=== PATIENT | female | born 1945 | race Caucasian/White ===

== ENCOUNTER → 2018-06-04 09:16 | Outpatient (CLI) | payer MEDICARE, OTHER, SELFPAY ==
--- NOTE | 2018-06-04 09:21 | DI.RAD.S_ITS ---
PROCEDURE: XR SHOULDER RT MIN 2V INDICATIONS: R SHOULDER PAIN TECHNIQUE: 3 views of the shoulder were acquired. COMPARISON: None. FINDINGS: Bones: No fractures or dislocations. No suspicious bony lesions. Visualized ribs appear intact. Moderate right MALENA glenohumeral joint degeneration. Presumed chronic degenerative cystic change projecting at the greater tuberosity Soft tissues: No suspicious soft tissue calcifications. IMPRESSION: Moderate right shoulder joint degeneration. Dictated by: James Silverman M.D. on 06/04/2018 at 10:55 Approved by: James Silverman M.D. on 06/04/2018 at 10:57
[2018-06-04 10:12] LABS: BUN Creatinine Ratio 21.1 (6-22); Blood Urea Nitrogen 19 mg/dL (7-17); Calcium 9.5 mg/dL (8.4-10.2); Carbon Dioxide 31 mmol/L (22-32); Chloride 98 mmol/L (98-107); Cholesterol 227 mg/dL (140-199); Estimated Glomerular Filt Rate > 60.0 mL/min (>60); Glucose 100 mg/dL (80-110); HDL Cholesterol 76 mg/dL (40-60); HEMOLYSIS < 15 (0-50); Potassium 4.5 mmol/L (3.4-5.1); Sodium 141 mmol/L (137-145)
[2018-06-04 10:31] LABS: LDL Cholesterol Calculated 129 mg/dL (<100); Triglycerides 112 mg/dL (35-150)
[2018-06-04 10:36] LABS: Thyroid Stimulating Hormone 3.08 uIU/mL (0.47-4.68)
== END ==
PROVIDERS: PCP Internal Medicine; Visit Provider Internal Medicine
DX: Z00.00 Encounter for general adult medical examination without abnormal findings (principal); E78.5 Hyperlipidemia, unspecified; M19.011 Primary osteoarthritis, right shoulder; M25.511 Pain in right shoulder; R68.89 Other general symptoms and signs
CPT/HCPCS: 36415; 73030; 80048; 80061; 84443

== ENCOUNTER → 2018-07-31 09:37 | Outpatient (CLI) | payer MEDICARE, OTHER, SELFPAY ==
--- NOTE | 2018-07-31 | DI.RAD.S_ITS ---
PROCEDURE: XR CHEST 2V INDICATIONS: COUGH TECHNIQUE: 2 views of the chest were acquired. COMPARISON: None. FINDINGS: Surgical changes and devices: None. Lungs and pleura: Lungs are clear. No pleural effusions or pneumothorax. Mediastinum: Mediastinal contours are normal. Heart size is normal. Bones and chest wall: No suspicious bony abnormalities. Soft tissues appear unremarkable. IMPRESSION: No acute disease Dictated by: James Silverman M.D. on 07/31/2018 at 10:21 Approved by: James Silverman M.D. on 07/31/2018 at 10:22
== END ==
PROVIDERS: PCP Internal Medicine; Visit Provider Internal Medicine
DX: R05 Cough (principal)
CPT/HCPCS: 71046

== ENCOUNTER 2018-09-28 20:23 | Emergency (ER) | payer MEDICARE, OTHER, SELFPAY ==
[2018-09-28 20:34] VITALS: BP 167/82; PULSE 81; RESP 15; TEMP 36.4; O2SAT 100; BMI 23.0
--- NOTE | 2018-09-28 20:36 | ED_ITS ---
HPI - Seizure General Chief Complaint: Seizure Stated Complaint: Tingling hands and flushed Time Seen by Provider: 09/28/18 20:26 Source: patient and family Mode of arrival: ambulatory Limitations: no limitations History of Present Illness HPI Narrative: Patient is 73-year-old female who presents with episodes of st aring off into space. She says she gets really flushed she feels her heart pounding on she stares off for a few seconds. Her is at 2 episodes this evening they have been happening throughout the week. She never passes out. She is not there during the episode as she just stares off. She does not fall down there is no shaking. His but she can tell that they are coming with feeling flushed she gets tingling in her hands. She says that she has been having some chest discomfort for about a month. She has no numbness tingling or weakness no difficulty speaking. Her states that she is quite forgetful at times which is not abnormal for her. He is followed by primary care ph ysician here in [facility]. complaint: possible seizure Related Data Allergies Allergy/AdvReac Type Severity Reaction Status Date / Time Sulfa (Sulfonamide Allergy Severe NAUSEA/ACHE Verified 09/28/18 20:34 Antibiotics) S [SULFA (SULFONAMIDE ANTIBIOTICS)] Review of Systems Review of Systems ROS Unobtainable: All systems reviewed & are unremarkable except as noted in HPI and below Constitutional Denies chills, Denies fever(s), Denies lethargy and Denies weakness Cardiovascular Reports chest pain, Denies syncope, Reports rapid heart rate, Denies irregular heart rhythm, Denies lightheadedness, Denies palpitations, Denies dyspnea, Denies dyspnea on exertion and Denies orthopnea Respiratory Denies cough, Denies dyspnea, Denies dyspnea on exertion and Denies wheezing Gastrointestinal Gastrointestinal: Denies abdominal pain, Denies change in bowel habits, Denies diarrhea, Denies nausea and Denies vomiting Genitourinary Denies hematuria, Denies flank pain, Denies urinary incontinence and Denies urinary urgency Musculoskeletal Denies back pain, Denies muscle weakness, Denies numbness and Denies tingling Integumentary/Breasts Denies pruritus, Denies erythema, Denies rash and Denies wounds Neurologic Reports as per HPI, Reports confusion, Denies syncope, Denies lack of c oordination, Denies numbness, Denies convulsions, Denies tingling and Denies weakness Psychiatric Reports confusion Endocrine Denies palpitations Allergic/Immunologic Denies wheezing COUNTS INCLUDE 234 BEDS AT THE [facility] Medical History Memory change (Acute) Patient denies significant medical history (Acute) Social History Smoking Status: Unknown if ever smoked Social History Smoking Status: Unknown if ever smoked Exam Initial Vital Signs Initial Vital Signs: Vital Signs Temperature 97.6 F 09/28/18 20:34 Pulse Rate 81 09/28/18 20:34 Respiratory Rate 15 09/28/18 20:34 Blood Pressure 167/82 H 09/28/18 20:34 Pulse Oximetry 100 09/28/18 20:34 GENERAL: Well-appearing, well-nourished and in no acute distress. HEENT: Head atraumatic,EOMI, pupils reactive, face symmetric, moist mucous membranes CARDIOVASCULAR: Regular rate and rhythm without murmurs, rubs or gallops. RESPIRATORY: Breath sounds equal bilaterally, no wheezes rales or rhonchi. ABDOMEN: Soft, nontender. Normoactive bowel sounds all 4 quadrants. No guarding or rebound. EXTREMITIES: Normal range of motion, no clubbing or edema. Neurovascularly intact NEUROLOGICAL: Alert and oriented x4.Normal gait and speech. Cranial nerves II through XII grossly intact. Good otywxa-ts-wbpb, good xkbs-vb-smof, strength equal bilaterally, no dysarthria or aphasia, sensation in tact to soft touch bilaterally, no visual changes, no facial droop SKIN: Warm, dry, no laceration, no petechiae, no rashes or lesions. Scores NIH Stroke Scale Level of Conciousness: Alert, keenly responsive Ask month/age: Answers both questions correctly. Open/close eyes, close hand: Performs both tasks correctly Best gaze horizontal: Normal Visual andujar: No visual loss Facial palsy: Normal symetrical movement Left arm drift: No drift for full 10 sec Right arm drift: No drift for full 10 sec Left leg drift: No drift for full 10 sec Right leg drift: No drift for full 10 sec Limb ataxia: Absent Sensory on face/arms/legs: Normal, no sensory loss Best language: No aphasia, normal Dysarthria: Normal Extinction or inattention: No abnormality Total NIH Stroke scale score: 0 Course Orders Ordered: ED Orders 09/28/18 20:42 Complete Blood Count AUTO DIFF Stat Comprehensive Metabolic Panel Stat Magnesium Stat Prolactin Stat Troponin & CK Cardiac Panel Stat 09/28/18 20:43 CT head/brain wo con Stat EKG-12 Lead Stat 09/28/18 20:44 XR chest 1V Stat Discontinued Medications Sodium Chloride (Normal Saline 0.9%) 1,000 mls @ 1,000 mls/hr IV BOLUS ONE Stop: 09/28/18 21:42 Last Infusion: 09/28/18 22:37 Dose: 0 mls/hr Admin: 09/28/18 21:03 Dose: 1,000 mls/hr Vital Signs - 8 hr 09/28/18 20:34 09/28/18 21:31 09/28/18 22:00 Temperature 97.6 F Pulse Rate 81 81 78 Respiratory Rate 15 12 19 Blood Pressure 167/82 H Blood Pressure [Left Arm] 126/104 H 112/67 Pulse Oximetry 100 98 98 MDM - Seizure Lab Data Attestation: I reviewed the patient's lab results. Result diagrams: 09/28/18 20:42 09/28/18 20:42 Lab Results 09/28/18 09/28/18 Range/Units 20:42 20:42 WBC 7.2 (4.5-11.0) X10^3/uL RBC 4.22 (4.0-5.2) X10^6/uL Hgb 13.8 (12.0-16.0) g/dL Hct 39.9 (36-46) % MCV 94.5 (80-100) fL MCH 32.7 (26-34) PG MCHC 34.6 (30-36) % RDW 12.4 (11.6-14.8) % Plt Count 293 (150-400) X10^3/uL Neut % (Auto) 62.1 (50-75) % Lymph % (Auto) 26.5 (25-40) % Andrew % (Auto) 8.9 (3-14) % Eos % (Auto) 1.6 L (2-4) % Baso % (Auto) 0.9 (0-2) % Neut # (Auto) 4500 (1825-9826) /uL Lymph # (Auto) 1900 (6392-2314) /uL Andrew # (Auto) 600 (0-900) /uL Eos # (Auto) 100 (0-450) /uL Baso # (Auto) 100 (0-100) /uL Sodium 134 L (137-145) mmol/L Potassium 4.1 (3.4-5.1) mmol/L Chloride 99 (98-107) mmol/L Carbon Dioxide 24 (22-32) mmol/L BUN 24 H (7-17) mg/dL Creatinine 0.80 (0.52-1.04) mg/dL Estimated GFR > 60.0 (>60) mL/min BUN/Creatinine Ratio 30.0 H (6-22) Glucose 126 H (80-110) mg/dL Calcium 9.0 (8.4-10.2) mg/dL Magnesium 2.0 (1.6-2.3) mg/dL Total Bilirubin 0.3 (0.2-1.3) mg/dL AST 33 (14-36) IU/L ALT 31 (9-52) IU/L Alkaline Phosphatase 84 (38-126) U/L Total Creatine Kinase 132 (30-135) U/L CK-MB (CK-2) 0.92 (<2.37) ng/mL CK-MB (CK-2) Rel Index 0.7 L (1.5-5.0) % Troponin I < 0.012 (0.01-0.034) ng/mL Total Protein 6.7 (6.3-8.2) g/dL Albumin 4.4 (3.5-5.0) g/dL Globulin 2.3 (1.7-4.1) g/dL Albumin/Globulin Ratio 1.9 (1.0-2.8) Prolactin 32.3 H (3.0-18.6) ng/mL Urine Dip Bedside Urine Glucose Negative Bedside Urine Bilirubin - Negative Bedside Urine Ketone - Negative Urine Specific [place] 1.015 Bedside Urine Occult Blood + Bedside Urine pH 6.0 Bedside Urine Protein - Negative Bedside Urine Urobilinogen - Negative Bedside Urine Nitrite - Negative Bedside Urine Leukocytes - Negative Esterase Imaging Data CT scan - head: Radiologist's impression: PROCEDURE: CT HEAD/BRAIN WO CON INDICATIONS: possible seizures TECHNIQUE: Noncontrast 4.5 mm thick angled axial sections acquired from the foramen magnum to the vertex, with coronal and sagittal reformats. For radiation dose reduction, the following was used: automated exposure control, adjustment of mA and/or kV according to patient size. COMPARISON: None. FINDINGS: Image quality: Excellent. CSF spaces: Basal cisterns are patent. No extra-axial fluid collections. Ventricles are normal in size and shape. Brain: No midline shift. Subcentimeter hypoattenuating foci identified within the left basal ganglia. There are punctate calcifications in the right frontal lobe. Stanton-white matter interface is normal. Skull and face: Calvarium and visualized facial bones are intact, without suspicious lesions. Sinuses: Visualized sinuses and mastoids are clear. IMPRESSION: 1. Subcentimeter hypoattenuating foci within the left basal ganglia may represent age-indeterminate lacunar infarcts versus benign dilated perivascular spaces. Clinical correlation recommended. Consider brain MRI if there is continued clinical concern. 2. Punctate hyperattenuating foci in the right frontal lobe are favored to represent calcifications, with hemorrhage thought less likely. This can be the sequela of prior infection (such as seen with neurocysticercosis) or trauma, with hemorrhage thought less likely. Consider brain MRI if there is continued clinical concern. Findings discussed with the referring provider Dr. Loyda Kilgore at 9:40 PM on 09/28/[address] Patino. Dictated by: Sherman Patino M.D. on 09/28/2018 at 21:32 Approved by: Sherman Patino M.D. on 09/28/2018 at 21:4 Chest x-ray: Radiologist's impression: PROCEDURE: XR CHEST 1V INDICATIONS: chest pain TECHNIQUE: One view of the chest was acquired. COMPARISON: [facility], , XR CHEST 2V, 07/31/2018, 9:47. FINDINGS: Surgical changes and devices: None. Lungs and pleura: Lungs are clear. No pleural effusions or pneumothorax. Mediastinum: Mediastinal contours appear normal. Heart size is normal. There is mild prominence of the pulmonary vasculature. Bones and chest wall: No suspicious bony lesions. Overlying soft tissues appear unremarkable. IMPRESSION: No acute cardiopulmonary disease. Dictated by: Sherman Patino M.D. on 09/28/2018 at 23:11 ECG Data Attestation: I personally reviewed and interpreted this ECG as follows: Prior ECG tracings: available for review Interpretation: Normal sinus rhythm rate [address] changes no priors to compare MDM Narrative Medical decision making narrative: It sounds like patient is having almost like absence seizures. Head CT did show some questionable areas no acute hemorrhage or masses. she may also be having cardiac arrhythmia she does not pass out there is no syncopal episode. I discussed with both she and her that she probably needs neurology consultation along with MRI. At this point I do not think admission is needed but further workup for sure. She has no focal deficits she has not had any episodes in the ED. At this time I recommend the patient not drive until further evaluation. She and her both understand and agree She may also need Holter monitor for cardiac arrhythmia. I discussed all findings with the patient and spouse, Education has been performed regarding treatment plan, diagnosis, warning signs and symptoms and all concerns have been addressed. Verbally agree with and understood all of the above. Discharge Plan Departure Patient Disposition: Home Clinical Impression: Absence attack Discharge Date/Time: 09/28/18 22:46 Interventions: ED Discharge Assessment Last Done: 09/28/18 22:46 Instructions: DI for Seizure Disorder -- Adult Activity Restrictions/Additional Instructions: DO NOT DRIVE FOR 6 MONTHS UNTIL EVALUATION BY NEUROLOGY *You have been diagnosed with possible abscess on seizure *What to do: You need further evaluation such as MRI of the brain and Neurology evaluation. *Continue to take medications as directed *Follow up with your primary care provider in 2-3 days, *Return to ER if you should have or any new, worsening or concerning symptoms Referrals: Jonathan Tran MD [Non-Staff] - Darshana Alexander MD [Primary Care Provider] -
--- NOTE | 2018-09-28 20:43 | DI.CT.S_ITS ---
PROCEDURE: CT HEAD/BRAIN WO CON INDICATIONS: possible seizures TECHNIQUE: Noncontrast 4.5 mm thick angled axial sections acquired from the foramen magnum to the vertex, with coronal and sagittal reformats. For radiation dose reduction, the following was used: automated exposure control, adjustment of mA and/or kV according to patient size. COMPARISON: None. FINDINGS: Image quality: Excellent. CSF spaces: Basal cisterns are patent. No extra-axial fluid collections. Ventricles are normal in size and shape. Brain: No midline shift. Subcentimeter hypoattenuating foci identified within the left basal ganglia. There are punctate calcifications in the right frontal lobe. Stanton-white matter interface is normal. Skull and face: Calvarium and visualized facial bones are intact, without suspicious lesions. Sinuses: Visualized sinuses and mastoids are clear. IMPRESSION: 1. Subcentimeter hypoattenuating foci within the left basal ganglia may represent age-indeterminate lacunar infarcts versus benign dilated perivascular spaces. Clinical correlation recommended. Consider brain MRI if there is continued clinical concern. 2. Punctate hyperattenuating foci in the right frontal lobe are favored to represent calcifications, with hemorrhage thought less likely. This can be the sequela of prior infection (such as seen with neurocysticercosis) or trauma, with hemorrhage thought less likely. Consider brain MRI if there is continued clinical concern. Findings discussed with the referring provider Dr. Loyda Kilgore at 9:40 PM on 09/28/[address] Patino. Dictated by: Sherman Patino M.D. on 09/28/2018 at 21:32 Approved by: Sherman Patino M.D. on 09/28/2018 at 21:41
--- NOTE | 2018-09-28 20:44 | DI.RAD.S_ITS ---
PROCEDURE: XR CHEST 1V INDICATIONS: chest pain TECHNIQUE: One view of the chest was acquired. COMPARISON: [facility], CR, XR CHEST 2V, 07/31/2018, 9:47. FINDINGS: Surgical changes and devices: None. Lungs and pleura: Lungs are clear. No pleural effusions or pneumothorax. Mediastinum: Mediastinal contours appear normal. Heart size is normal. There is mild prominence of the pulmonary vasculature. Bones and chest wall: No suspicious bony lesions. Overlying soft tissues appear unremarkable. IMPRESSION: No acute cardiopulmonary disease. Dictated by: Sherman Patino M.D. on 09/28/2018 at 23:11 Approved by: Sherman Patino M.D. on 09/28/2018 at 23:13
[2018-09-28 20:52] LABS: Add Manual Diff / Slide Review NO; Basophils Absolute Auto 100 /uL (0-100); Basophils Percent Auto 0.9 % (0-2); Eosinophils Absolute Auto 100 /uL (0-450); Eosinophils Percent Auto 1.6 % (2-4); Hematocrit 39.9 % (36-46); Hemoglobin 13.8 g/dL (12.0-16.0); Lymphocytes Absolute Auto 1900 /uL (1100-4500); Lymphocytes Percent Auto 26.5 % (25-40); Mean Corpuscular HGB Conc 34.6 % (30-36); Mean Corpuscular Hemoglobin 32.7 PG (26-34); Mean Corpuscular Volume 94.5 fL (80-100); Monocytes Absolute Auto 600 /uL (0-900); Monocytes Percent Auto 8.9 % (3-14); Neutrophils Absolute Auto 4500 /uL (1500-7000); Neutrophils Percent Auto 62.1 % (50-75); Platelet Count 293 X10^3/uL (150-400); Red Blood Cell Count 4.22 X10^6/uL (4.0-5.2); Red Cell Distribution Width 12.4 % (11.6-14.8); White Blood Cell Count 7.2 X10^3/uL (4.5-11.0)
[2018-09-28] MEDS: SODIUM CHLORIDE 0.9% 1,000 ML 1000 ML IV (21:03)
[2018-09-28 21:13] LABS: Alanine Aminotransferase 31 IU/L (9-52); Albumin 4.4 g/dL (3.5-5.0); Albumin Globulin Ratio 1.9 (1.0-2.8); Alkaline Phosphatase 84 U/L (38-126); Aspartate Aminotransferase 33 IU/L (14-36); Bilirubin Total 0.3 mg/dL (0.2-1.3); Blood Urea Nitrogen 24 mg/dL (7-17); Carbon Dioxide 24 mmol/L (22-32); Chloride 99 mmol/L (98-107); Creatine Kinase 132 U/L (30-135); Estimated Glomerular Filt Rate > 60.0 mL/min (>60); Globulin 2.3 g/dL (1.7-4.1); Glucose 126 mg/dL (80-110); HEMOLYSIS 32 (0-50); Potassium 4.1 mmol/L (3.4-5.1); Sodium 134 mmol/L (137-145); Total Protein 6.7 g/dL (6.3-8.2)
[2018-09-28 21:14] LABS: Troponin I < 0.012 ng/mL (0.01-0.034)
[2018-09-28 21:18] LABS: CKMB % Relative Index 0.7 % (1.5-5.0); Creatine Kinase MB 0.92 ng/mL (<2.37)
[2018-09-28 21:19] LABS: Prolactin 32.3 ng/mL (3.0-18.6)
[2018-09-28 21:31] VITALS: BP 126/104; PULSE 81; RESP 12; O2SAT 98
[2018-09-28 22:00] VITALS: BP 112/67; PULSE 78; RESP 19; O2SAT 98
== END 2018-09-28 22:46 | disposition home or self-care (01) ==
PROVIDERS: Emergency Provider Emergency Medicine; PCP Internal Medicine
DX: G40.A09 Absence epileptic syndrome, not intractable, without status epilepticus (principal); R07.9 Chest pain, unspecified
CPT/HCPCS: 36591; 70450; 71045; 80053; 81003; 82550; 82553; 83735; 84146; 84484; 85025; 93005; 96360; 96361; 99283; 99285

== ENCOUNTER → 2018-10-08 06:27 | Outpatient (CLI) | payer MEDICARE, OTHER, SELFPAY ==
--- NOTE | 2018-10-08 | DI.MRI.S_ITS ---
PROCEDURE: MR STROKE Pre- and post-contrast brain MRI, non-contrast brain MR angiogram, pre- and postcontrast neck MR angiogram INDICATIONS: cerebral infarction due to occlusion or stenosis TECHNIQUE: Brain: Noncontrast axial T1 spin echo, axial T2 fast spin echo, sagittal and axial FLAIR, coronal T2 fast spin echo, axial gradient echo, axial diffusion and ADC through the brain. After the administration of contrast, axial 3D VIBE of the cranial vasculature and brain. Brain MRA: Non-contrast 3-D time of flight MR angiogram, with multiple vlaoika-nncbfsxqf-ldibfvzskp (MIP) reformats performed. Neck MRA: Axial and sagittal TruFISP through the neck. Coronal dynamic MR angiogram during administration of contrast in the arterial and venous phases, with 3-dimenstional qlgcbmc-mhwkbmfaf-ropjykjobn (MIP) reformats constructed from subtraction images. COMPARISON: [facility], CT, CT HEAD/BRAIN WO CON, 09/28/2018, 20:48. FINDINGS: Image quality: Excellent. BRAIN: CSF spaces: Ventricles are normal in size and shape. Basal cisterns are patent. No extra-axial fluid collections. Brain: No intracranial bleeds or mass effects. Stanton-white matter interface is normal. Diffusion weighted images show no acute ischemic insults. Small lacunar infarctions are seen involving the basal ganglia, left more prominent than right. Brainstem appears normal. Normal intravascular flow voids are present. No abnormal intracranial enhancement. Skull and face: Calvarial marrow signal is normal. Orbits appear normal. Sinuses: Sinuses and mastoids are clear. There is mild leftward nasal septal deviation. BRAIN MR ANGIOGRAM: Anterior circulation: Intracranial internal carotid arteries are normal in size and enhancement. The flow within the paired anterior cerebral arteries is normal and symmetric. The flow within the middle cerebral arteries is normal and symmetric. The anterior communicating artery is seen. No stenoses, occlusions, or aneurysms. Posterior circulation: The visualized portions of the vertebral arteries demonstrate normal caliber, and join to form a normal appearing basilar artery. The flow within the posterior cerebral arteries is normal and symmetric. No stenoses, occlusions, or aneurysms. NECK MR ANGIOGRAM: Carotids: Incidental note is made of a common origin of the right brachiocephalic artery and the left common carotid artery (bovine type arch). This is considered to be a developmental variant of no clinical consequence. The origins of the common carotid arteries appear patent. The calibers and courses of both common carotid arteries are normal. The bifurcation regions appear normal bilaterally. The internal carotid arteries demonstrate normal course and caliber. Posterior circulation: The origins of the vertebral arteries appear patent. More superior portions of both vertebral arteries demonstrate normal course and caliber, and join to form a normal appearing basilar artery. Miscellaneous: Subclavian arteries appear patent. Pre-contrast images through the neck show no soft tissue abnormalities. IMPRESSION: BRAIN MRI: No findings of acute or subacute infarction can be seen. 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 BRAIN MR ANGIOGRAM: No significant intracranial arterial abnormality in the seen. NECK MR ANGIOGRAM: Within the arteries of the neck, no hemodynamically significant stenosis can be seen. Dictated by: Antonio Redd M.D. on 10/08/2018 at 9:04 Approved by: Antonio Redd M.D. on 10/08/2018 at 9:08
== END ==
PROVIDERS: PCP Internal Medicine; Visit Provider Internal Medicine
DX: I63.81 Other cerebral infarction due to occlusion or stenosis of small artery (principal)
CPT/HCPCS: 70548; 70553

== ENCOUNTER → 2019-01-02 07:37 | Outpatient (CLI) | payer MEDICARE, OTHER, SELFPAY ==
[2019-01-02 09:42] LABS: Alanine Aminotransferase 23 IU/L (9-52); Aspartate Aminotransferase 35 IU/L (14-36); Cholesterol 144 mg/dL (140-199); HDL Cholesterol 63 mg/dL (40-60); LDL Cholesterol Calculated 71 mg/dL (<100); Triglycerides 50 mg/dL (35-150)
== END ==
PROVIDERS: PCP Internal Medicine; Visit Provider Internal Medicine
DX: E78.5 Hyperlipidemia, unspecified (principal)
CPT/HCPCS: 36415; 80061; 84450; 84460

== ENCOUNTER → 2019-01-07 10:43 | Outpatient (CLI) | payer MEDICARE, OTHER, SELFPAY ==
--- NOTE | 2019-01-07 | DI.RAD.S_ITS ---
PROCEDURE: FL BARIUM SWALLOW W SPEECH INDICATIONS: DYSPHAGIA/COUGH TECHNIQUE: Examination was conducted in conjunction with speech pathology per standard protocol. In the lateral projection, filming was performed of the patient swallowing. AP projection filming may also be performed with patient swallowing. COMPARISON: None. FINDINGS: Function: The oral preparatory phase appears normal, with proper containment. The subsequent oral propulsive phase, pharyngeal phase, and esophageal phase of swallowing also appear normal with all proffered substances. No laryngotracheal penetration or aspiration. No pathologic vallecular pooling. Mild residue present in the left pyriform sinus Morphology: No cricopharyngeal bar is identified. No cervical esophageal webs. No Zenker's diverticulum. No strictures. IMPRESSION: No aspiration Dictated by: James Silverman M.D. on 01/07/2019 at 12:14 Approved by: James Silverman M.D. on 01/07/2019 at 12:14
--- NOTE | 2019-01-07 14:25 | ST.SWALLOW ---
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 Pt reported that she has been coughing and choking when she has been eating. She noted that this has not happened for a couple of months. She continues to have post nasal drip and sinus problems that contribute to he cough, she reported. In reviewing the pts records noted that she was admitted to the ED department of [facility] on 09/28/18 with a possible CVA or seizure activity. An MRI at the time indicated Brain: No intracranial bleeds or mass effects. Stanton-white matter interface is normal. Diffusion weighted images show no acute ischemic insults. Small lacunar infarctions are seen involving the basal ganglia, left more prominent than right. Brainstem appears normal. Normal intravascular flow voids are present. No abnormal intracranial enhancement.: ( see ED note 11/11) Subjective Observations Pt was seated in the flouroscopy chair. Procedure instructions were provided . Oral mechanism examination wasn unremarkable Patient Positioning Position View Lat-A/P Imaging Lateral View Textures Administered Trials Presented Thin Liquid via Spoon Thin Liquid via Cup Thin Liquid via Straw [place] Liquid via Cup Pudding Thick Liquid via Spoon Regular Textures Oral Phase Source: MBSIMP (TM) (C) Bolus Specific Scoring Grid Lip Closure WFL Tongue Control During Bolus Hold WFL Bolus Prep/Mastication WFL Bolus Transport/Lingual Motion WFL A/P Lingual Propulsion Delay No Oral Residue No Impairment (WNL) Nasal Regurgitation No Additional Oral Phase Observations Oral phase of Pt's swallowing appeared to be WNL/WFL Pharyngeal Phase Source: MBSIMP (TM) (C) Bolus Specific Scoring Grid Delayed Initiation of Pharyngeal Swallow No Soft Palate Elevation WFL Tongue Base Strength/Range of Motion WFL Residue Along the Tongue Base No: Minimal Clearance of Residue Along Tongue Base WFL Laryngeal Elevation WFL Anterior Hyoid Movement WFL Epiglottic Range of Motion WFL Clearance of Vallecular Residue WFL Laryngeal Vestibular Closure WFL Pharyngeal Stripping Wave WFL Pharyngeal Contraction WFL Posterior Pharyngeal Wall Residue Yes: Minimal to mild - cleared with subsequent swallow Clearance of Posterior Pharyngeal Wall WFL Residue Upper Esophageal Sphincter Opening WFL Residue in the Pyriform Sinuses Yes: left side not clearing with subsequent swallows Clearance of Residue in the Pyriform Mild Impairment Sinuses Esophageal Clearance Upright Position WFL Pharyngoesophageal Backflow Observed No Additional Pharyngeal Phase Observations Pharyngeal phase of the swallow appeared to be WFL for the Pt. There were, however, several cervical osteophytes that intruded in the pharyngeal and upper esophageal spaces that could be impacting bolus flow This could then give the patient a sense of swallowing difficulty . The osteophytes were located from C3-4 to C6-7. A/P View Textures Administered Trials Presented [place] Liquid via Cup A/P View Observations Pharyngeal Contraction WFL Vocal Fold Function Good Residue Observed Pyriform Sinus Left Esophageal Function WFL Esophageal Clearance Upright Position WFL Clinical Impressions Dysphagia Type No oropharyngeal dysphagia observed Patient Appropriate for Therapy No Recommendations Diet Liquids Order Thin Diet Order Regular Medication Recommendation As Tolerated Aspiration Precautions Recommended Precautions Upright at 90 Degrees Treatment Plan Recommended Referrals Primary Care Physician ENT Consult
== END ==
PROVIDERS: PCP Internal Medicine; Visit Provider Otolaryngology
DX: R13.19 Other dysphagia (principal); R05 Cough
CPT/HCPCS: 74230; 92611

== ENCOUNTER → 2019-01-22 08:18 | Outpatient (CLI) | payer MEDICARE, OTHER, SELFPAY ==
[2019-01-22 09:25] LABS: Add Manual Diff / Slide Review NO; Basophils Absolute Auto 0 /uL (0-100); Basophils Percent Auto 0.7 % (0-2); Eosinophils Absolute Auto 100 /uL (0-450); Eosinophils Percent Auto 2.3 % (2-4); Hematocrit 41.4 % (36-46); Hemoglobin 14.5 g/dL (12.0-16.0); Lymphocytes Absolute Auto 1800 /uL (1100-4500); Lymphocytes Percent Auto 27.9 % (25-40); Mean Corpuscular Hemoglobin 33.1 PG (26-34); Mean Corpuscular Volume 94.6 fL (80-100); Monocytes Absolute Auto 500 /uL (0-900); Monocytes Percent Auto 8.4 % (3-14); Neutrophils Absolute Auto 3800 /uL (1500-7000); Neutrophils Percent Auto 60.7 % (50-75); Platelet Count 297 X10^3/uL (150-400); Red Blood Cell Count 4.38 X10^6/uL (4.0-5.2); Red Cell Distribution Width 12.1 % (11.6-14.8); White Blood Cell Count 6.3 X10^3/uL (4.5-11.0)
[2019-01-22 09:30] LABS: Hemoglobin A1C% w Est Avg Glu 5.3 % (4.0-6.0)
[2019-01-22 09:59] LABS: Alanine Aminotransferase 27 IU/L (9-52); Albumin 4.4 g/dL (3.5-5.0); Albumin Globulin Ratio 1.5 (1.0-2.8); Alkaline Phosphatase 80 U/L (38-126); Aspartate Aminotransferase 38 IU/L (14-36); BUN Creatinine Ratio 28.8 (6-22); Bilirubin Total 0.8 mg/dL (0.2-1.3); Blood Urea Nitrogen 23 mg/dL (7-17); Calcium 9.5 mg/dL (8.4-10.2); Carbon Dioxide 31 mmol/L (22-32); Chloride 102 mmol/L (98-107); Estimated Glomerular Filt Rate > 60.0 mL/min (>60); Globulin 2.9 g/dL (1.7-4.1); Glucose 93 mg/dL (80-110); HEMOLYSIS < 15 (0-50); Potassium 4.1 mmol/L (3.4-5.1); Sodium 141 mmol/L (137-145); Total Protein 7.3 g/dL (6.3-8.2)
[2019-01-22 10:16] LABS: Free T4, Direct Thyroxine 0.73 ng/dL (0.78-2.19)
[2019-01-22 10:45] LABS: Vitamin B12 731 pg/mL (239-931)
[2019-01-25 15:04] LABS: Alpha-Tocopherol 12.5 mg/L (5.7-19.9); Gamma-Tocopherol 1.6 mg/L (< 4.4)
[2019-01-25 21:16] LABS: Methylmalonic Acid 201 nmol/L (87-318)
== END ==
PROVIDERS: Family Provider Internal Medicine; PCP Internal Medicine; Visit Provider Psychiatry & Neurology Neurology
DX: R41.3 Other amnesia (principal); I63.81 Other cerebral infarction due to occlusion or stenosis of small artery
CPT/HCPCS: 36415; 80053; 82607; 83036; 83921; 84439; 84446; 85025; 86780

== ENCOUNTER 2019-01-25 18:33 | Emergency (ER) | payer MEDICARE, OTHER, SELFPAY ==
[2019-01-25] VITALS (7 sets, daily range): BP systolic 123–148; BP diastolic 69–88; PULSE 92–101; RESP 18–22; TEMP 38–39; O2SAT 95–100; BMI 22.6
--- NOTE | 2019-01-25 18:49 | DI.CT.S_ITS ---
PROCEDURE: CT HEAD/BRAIN WO CON INDICATIONS: mental status change, sent for stroke eval TECHNIQUE: Noncontrast 4.5 mm thick angled axial sections acquired from the foramen magnum to the vertex, with coronal and sagittal reformats. For radiation dose reduction, the following was used: automated exposure control, adjustment of mA and/or kV according to patient size. COMPARISON: [facility], CT, CT HEAD/BRAIN WO CON, 09/28/2018, 20:48. FINDINGS: Image quality: Slight degradation by motion artifact of the lower head. CSF spaces: Basal cisterns are patent. No extra-axial fluid collections. The ventricles are symmetric in size and shape. Brain: No intracranial bleeds or masses. There is minimal cerebral volume loss for age, with resultant ventricular and sulcal prominence. There are mild periventricular and deep white matter chronic small vessel ischemic changes. There is intracranial internal carotid artery atherosclerosis. Skull and face: Calvarium and visualized facial bones appear intact, without suspicious lesions. Sinuses: Visualized sinuses and mastoids are clear. IMPRESSION: CT head without acute intracranial abnormalities. Minimal age related senescent change and sequela of chronic small vessel ischemic disease. Dictated by: Sherman Garibay M.D. on 01/25/2019 at 19:16 Approved by: Sherman Garibay M.D. on 01/25/2019 at 19:18
[2019-01-25 19:12] LABS: Add Manual Diff / Slide Review NO; Basophils Absolute Auto 0 /uL (0-100); Basophils Percent Auto 0.5 % (0-2); Eosinophils Absolute Auto 0 /uL (0-450); Eosinophils Percent Auto 0.4 % (2-4); Hematocrit 40.7 % (36-46); Lymphocytes Absolute Auto 500 /uL (1100-4500); Lymphocytes Percent Auto 6.7 % (25-40); Mean Corpuscular HGB Conc 34.5 % (30-36); Mean Corpuscular Hemoglobin 32.5 PG (26-34); Mean Corpuscular Volume 94.1 fL (80-100); Monocytes Absolute Auto 900 /uL (0-900); Monocytes Percent Auto 11.2 % (3-14); Neutrophils Absolute Auto 6600 /uL (1500-7000); Neutrophils Percent Auto 81.2 % (50-75); Platelet Count 275 X10^3/uL (150-400); Red Blood Cell Count 4.32 X10^6/uL (4.0-5.2); White Blood Cell Count 8.1 X10^3/uL (4.5-11.0)
--- NOTE | 2019-01-25 19:22 | DI.MRI.S_ITS ---
PROCEDURE: MR HEAD/BRAIN WO CON INDICATIONS: mental status change TECHNIQUE: Non-contrast axial T1 spin echo, axial T2 fast spin echo, sagittal and axial FLAIR, coronal T2 fast spin echo, axial gradient echo, axial diffusion and ADC through the brain. COMPARISON: [facility], CT, CT HEAD/BRAIN WO CON, 01/25/2019, 18:56. FINDINGS: Image quality: Excellent. CSF spaces: Ventricles appear symmetric in size and shape. Basal cisterns are patent. No extra-axial fluid collections. Brain: No intracranial bleeds or mass effects. There is minimal cerebral volume loss for age. There are minimal periventricular and deep white matter chronic small vessel ischemic changes. Brainstem appears normal. Diffusion-weighted images show no acute ischemic insults. No chronic ischemic insults. Normal intravascular flow voids are present. Skull and face: Calvarial bone marrow is normal in signal. Orbits are normal. Sinuses: Sinuses and mastoids are clear. IMPRESSION: No acute intracranial abnormalities. No evidence for acute cerebral infarction. Dictated by: Sherman Garibay M.D. on 01/25/2019 at 20:44 Approved by: Sherman Garibay M.D. on 01/25/2019 at 20:45
[2019-01-25 19:23] LABS: Lactate (Lactic Acid) 1.1 mmol/L (0.7-2.1)
[2019-01-25 19:25] LABS: INR 1.1 (0.9-1.3); Prothrombin Time 12.6 SECONDS (10.1-12.7)
[2019-01-25 19:27] LABS: PTT Partial Thromboplastin Tim 24 SECONDS (26.4-36.2)
[2019-01-25 19:28] LABS: Blood Urea Nitrogen 18 mg/dL (7-17); Calcium 9.3 mg/dL (8.4-10.2); Carbon Dioxide 28 mmol/L (22-32); Chloride 97 mmol/L (98-107); Estimated Glomerular Filt Rate > 60.0 mL/min (>60); Ethanol (ETOH) < 10 mg/dL; Glucose 121 mg/dL (80-110); HEMOLYSIS < 15 (0-50); Potassium 3.8 mmol/L (3.4-5.1); Sodium 136 mmol/L (137-145)
[2019-01-25] MEDS: SODIUM CHLORIDE 0.9% 1,000 ML 150 ML IV (19:40)
[2019-01-25 19:44] LABS: Procalcitonin < 0.05 ng/mL (<0.5)
--- NOTE | 2019-01-25 20:34 | ED_ITS ---
HPI - Neuro Symptoms/Deficit General Chief Complaint: Neuro Symptoms/Deficit Stated Complaint: thinks she is having a stroke or seizure not sure Time Seen by Provider: 01/25/19 18:35 Source: patient and family Mode of arrival: ambulatory Limitations: no limitations History of Present Illness HPI Narrative: 73-year-old female nonsmoker presents with family for evaluation of progressive mental status decline over the past few months. She was seen here in September after having various brief episodes of ?checking out? and she was diagnosed with absence seizures and referred to Neurology. She has seen Neurology in [place] and has an upcoming series of tests which included sounds like an MRI and an EEG. She presents today because she has become increasingly forgetful, confused, aggressive and not acting at her baseline. Yesterday she developed cough and cold symptoms including runny nose, cough and fever. Today she presents with a fever as high as 102 and the mental status changes as noted. She denies any recent long distance or international travel. She has had no focal neurologic findings such as numbness, tingling or weakness. She has had no headaches or neck pain Onset (ago): hour(s) Timing confirmed by: spouse and family member Location: altered History of same: Yes Severity: moderate Quality: weak Relieving factors: none Exacerbating factors: none On Anticoagulants: No Associated symptoms: confusion and fever/chills Treatments Prior to Arrival: none Related Data Home Medications Medication Instructions Recorded Confirmed acyclovir 1 tab PO BID 01/25/19 01/25/19 atorvastatin 1 tab PO DAILY 01/25/19 01/25/19 fluoxetine 1 tab PO DAILY 01/25/19 01/25/19 levetiracetam 01/25/19 Allergies Allergy/AdvReac Type Severity Reaction Status Date / Time Sulfa (Sulfonamide Allergy Severe NAUSEA/ACHE Verified 01/25/19 18:54 Antibiotics) S [SULFA (SULFONAMIDE ANTIBIOTICS)] Review of Systems Constitutional Denies chills, Reports fever(s), Denies lethargy and Denies weakness Eyes Denies change in vision, Denies eye discharge, Denies irritation and Denies loss of vision ENT Ears, Nose, Mouth, and Throat: Denies change in voice, Denies neck pain and Denies sore throat Cardiovascular Denies chest pain, Denies irregular heart rhythm, Denies lightheadedness, Denies palpitations, Denies dyspnea, Denies dyspnea on exertion and Denies orthopnea Respiratory Denies cough, Denies dyspnea, Denies dyspnea on exertion and Denies wheezing Gastrointestinal Gastrointestinal: Denies abdominal pain, Denies change in bowel habits, Denies diarrhea, Denies nausea and Denies vomiting Genitourinary Denies hematuria, Denies flank pain, Denies urinary incontinence and Denies urinary urgency Musculoskeletal Denies neck pain Integumentary/Breasts Denies pruritus, Denies erythema, Denies rash and Denies wounds Neurologic Reports behavioral changes, Reports confusion, Denies loss of vision and Denies weakness Psychiatric Denies anxiety, Reports behavioral changes, Reports confusion, Denies depression, Reports irritability, Denies homicidal ideation and Denies suicidal ideation Endocrine Denies palpitations Hematologic/Lymphatic Denies easy bruising Allergic/Immunologic Denies wheezing [facility] Medical History Memory change (Acute) Patient denies significant medical history (Acute) Social History Smoking Status: Former smoker Social History Smoking Status: Former smoker Exam Narrative Exam Narrative: GENERAL: 73-year-old female, GCS 15, A&O x3, answers questions appropriately but with significant effort and visible difficulty. No slurring of words or repetitive questioning HEAD: Atraumatic. Normocephalic. No temporal or scalp tenderness. EYES: Pupils equal round and reactive. Extraocular motions intact. No scleral icterus. No injection or drainage. ENT: Nose without bleeding, purulent drainage or septal hematoma. Throat without erythema, tonsillar hypertrophy or exudate. Uvula midline. Airway patent. NECK: Trachea midline. No JVD or lymphadenopathy. Supple, nontender, no meningeal signs. CARDIOVASCULAR: Regular rate and rhythm without murmurs, gallops, or rubs. RESPIRATORY: Clear to auscultation. Breath sounds equal bilaterally. No wheezes, rales, or rhonchi. GASTROINTESTINAL: Abdomen soft, non-tender, nondistended. No hepato- splenomegaly, or palpable masses. No guarding. EXTREMITIES: No clubbing, cyanosis, or edema. No joint tenderness, effusion, or edema noted. BACK: Nontender without deformity or crepitance. No flank tenderness. NEURO: AOx3. SKIN: No rash or erythema. NIH Stroke Scale 1a. LOC: Patient is alert and keenly responsive (0) 1b. LOC Questions: Patient answers both LOC questions accurately (0) 1c. LOC Commands: Patient performs both tasks correctly (0) 2. Best Gaze: Normal (0) 3. Visual: No visual loss (0) 4. Facial palsy: Normal symmetrical movements (0) 5. Motor arm: No drift (0) 6. Motor leg: No drift (0) 7. Limb ataxia: Absent (0) 8. Sensory: Normal (0) 9. Best language: No aphasia; normal (0) 10. Dysarthria: Normal (0) 11. Extinction and inattention: No abnormality (0) NIHSS: 0 Initial Vital Signs Initial Vital Signs: Vital Signs Temperature 102.2 F H 01/25/19 18:43 Pulse Rate 101 H 01/25/19 18:43 Respiratory Rate 18 01/25/19 18:43 Blood Pressure 145/69 H 01/25/19 18:43 Pulse Oximetry 100 01/25/19 18:43 Procedures Lumbar Puncture Time Out Performed: Yes Patient Position: upright Skin Prep: Povidone-Iodine 1% Local Anesthetic: lidocaine 1% Amount of anesthesia used (mL): 3 Spinal Needle Gauge: 22G Interspace Used: L4-L5 Fluid Initially Obtained: clear Complications: none Course Orders Ordered: ED Orders 01/25/19 23:47 Cell Count w Diff CSF Stat Glucose CSF Stat Meningitis Panel (Film Array) Stat Total Protein CSF Stat 01/25/19 23:50 CSF culture Stat [facility] Miscellaneous Routine [facility] Miscellaneous Stat Discontinued Medications Sodium Chloride (Normal Saline 0.9%) 1,000 mls @ 150 mls/hr IV CONT ZACKARY Last Infusion: 01/25/19 23:43 Dose: 0 mls/hr Infusion: 01/25/19 22:45 Dose: 0 mls/hr Infusion: 01/25/19 20:25 Dose: 150 mls/hr Infusion: 01/25/19 20:00 Dose: 0 mls/hr Admin: 01/25/19 19:40 Dose: 150 mls/hr Ketorolac Tromethamine (Toradol) 15 mg IV NOW ONE Stop: 01/25/19 22:02 Last Admin: 01/25/19 22:30 Dose: 15 mg Consultations Consultation #1: discussion with neurology at [facility] recommend Paraneoplastic antibody panel and alzheimers panel be added to CSF. No need for admission or transfer Vital Signs - 8 hr 01/25/19 21:02 01/25/19 22:27 01/25/19 23:19 Pulse Rate 99 H 92 H 100 H Respiratory Rate 22 21 22 Blood Pressure Blood Pressure [Left Arm] 145/75 H 146/88 H 123/76 Pulse Oximetry 99 95 95 01/26/19 01:58 Pulse Rate 75 Respiratory Rate 16 Blood Pressure 135/73 Blood Pressure [Left Arm] Pulse Oximetry 94 MDM - Neuro Symptoms/Deficit Lab Data Result diagrams: 01/25/19 19:00 01/25/19 19:00 Lab Results 01/25/19 01/25/19 01/25/19 Range/Units 19:00 19:00 19:00 WBC 8.1 (4.5-11.0) X10^3/uL RBC 4.32 (4.0-5.2) X10^6/uL Hgb 14.0 (12.0-16.0) g/dL Hct 40.7 (36-46) % MCV 94.1 (80-100) fL MCH 32.5 (26-34) PG MCHC 34.5 (30-36) % RDW 12.0 (11.6-14.8) % Plt Count 275 (150-400) X10^3/uL Neut % (Auto) 81.2 H (50-75) % Lymph % (Auto) 6.7 L (25-40) % [place] % (Auto) 11.2 (3-14) % Eos % (Auto) 0.4 L (2-4) % Baso % (Auto) 0.5 (0-2) % Neut # (Auto) 6600 (1095-4269) /uL Lymph # (Auto) 500 L (1048-0859) /uL [place] # (Auto) 900 (0-900) /uL Eos # (Auto) 0 (0-450) /uL Baso # (Auto) 0 (0-100) /uL PT 12.6 (10.1-12.7) SECONDS INR 1.1 (0.9-1.3) APTT 24 L (26.4-36.2) SECONDS Sodium (137-145) mmol/L Potassium (3.4-5.1) mmol/L Chloride (98-107) mmol/L Carbon Dioxide (22-32) mmol/L BUN (7-17) mg/dL Creatinine (0.52-1.04) mg/dL Estimated GFR (>60) mL/min BUN/Creatinine Ratio (6-22) Glucose (80-110) mg/dL Lactate (0.7-2.1) mmol/L Calcium (8.4-10.2) mg/dL Procalcitonin < 0.05 (<0.5) ng/mL CSF Tube Number CSF Volume CSF Appearance (Clear) CSF Color (Colorless) CSF WBC (0-5) MONO/uL CSF RBC RBC /uL CSF Mononuclear WBCs CSF Polynuclear WBCs CSF Glucose (40-70) mg/dL CSF Total Protein (12-60) mg/dL CSF C.neoform/gat PCR (Not Detect) CSF CMV DNA (PCR) (Not Detect) CSF Enterovirus (PCR) (Not Detect) CSF E. coli (PCR) (Not Detect) CSF H. influenzae (PCR) (Not Detect) CSF HSV I (PCR) (Not Detect) CSF HSV II (PCR) (Not Detect) CSF HHV 6 (PCR) (Not Detect) CSF L.monocytogenes PCR (Not Detect) CSF N. meningitidis PCR (Not Detect) CSF Parechovirus (PCR) (Not Detect) CSF S. agalactiae (PCR) (Not Detect) CSF S. pneumoniae (PCR) (Not Detect) CSF VZV (PCR) Ethyl Alcohol mg/dL 01/25/19 01/25/19 01/25/19 Range/Units 19:00 19:00 23:47 WBC (4.5-11.0) X10^3/uL RBC (4.0-5.2) X10^6/uL Hgb (12.0-16.0) g/dL Hct (36-46) % MCV (80-100) fL MCH (26-34) PG MCHC (30-36) % RDW (11.6-14.8) % Plt Count (150-400) X10^3/uL Neut % (Auto) (50-75) % Lymph % (Auto) (25-40) % [place] % (Auto) (3-14) % Eos % (Auto) (2-4) % Baso % (Auto) (0-2) % Neut # (Auto) (0649-3165) /uL Lymph # (Auto) (3472-1767) /uL [place] # (Auto) (0-900) /uL Eos # (Auto) (0-450) /uL Baso # (Auto) (0-100) /uL PT (10.1-12.7) SECONDS INR (0.9-1.3) APTT (26.4-36.2) SECONDS Sodium 136 L (137-145) mmol/L Potassium 3.8 (3.4-5.1) mmol/L Chloride 97 L (98-107) mmol/L Carbon Dioxide 28 (22-32) mmol/L BUN 18 H (7-17) mg/dL Creatinine 0.90 (0.52-1.04) mg/dL Estimated GFR > 60.0 (>60) mL/min BUN/Creatinine Ratio 20.0 (6-22) Glucose 121 H (80-110) mg/dL Lactate 1.1 (0.7-2.1) mmol/L Calcium 9.3 (8.4-10.2) mg/dL Procalcitonin (<0.5) ng/mL CSF Tube Number 3 CSF Volume 2.0 ml CSF Appearance Clear (Clear) CSF Color Colorless (Colorless) CSF WBC 0 (0-5) MONO/uL CSF RBC 0 RBC /uL CSF Mononuclear WBCs Not Reportable CSF Polynuclear WBCs Not Reportable CSF Glucose 57 (40-70) mg/dL CSF Total Protein 43 (12-60) mg/dL CSF C.neoform/gat PCR (Not Detect) CSF CMV DNA (PCR) (Not Detect) CSF Enterovirus (PCR) (Not Detect) CSF E. coli (PCR) (Not Detect) CSF H. influenzae (PCR) (Not Detect) CSF HSV I (PCR) (Not Detect) CSF HSV II (PCR) (Not Detect) CSF HHV 6 (PCR) (Not Detect) CSF L.monocytogenes PCR (Not Detect) CSF N. meningitidis PCR (Not Detect) CSF Parechovirus (PCR) (Not Detect) CSF S. agalactiae (PCR) (Not Detect) CSF S. pneumoniae (PCR) (Not Detect) CSF VZV (PCR) Ethyl Alcohol < 10 mg/dL 01/25/19 Range/Units 23:47 WBC (4.5-11.0) X10^3/uL RBC (4.0-5.2) X10^6/uL Hgb (12.0-16.0) g/dL Hct (36-46) % MCV (80-100) fL MCH (26-34) PG MCHC (30-36) % RDW (11.6-14.8) % Plt Count (150-400) X10^3/uL Neut % (Auto) (50-75) % Lymph % (Auto) (25-40) % [place] % (Auto) (3-14) % Eos % (Auto) (2-4) % Baso % (Auto) (0-2) % Neut # (Auto) (8172-4333) /uL Lymph # (Auto) (6179-4649) /uL [place] # (Auto) (0-900) /uL Eos # (Auto) (0-450) /uL Baso # (Auto) (0-100) /uL PT (10.1-12.7) SECONDS INR (0.9-1.3) APTT (26.4-36.2) SECONDS Sodium (137-145) mmol/L Potassium (3.4-5.1) mmol/L Chloride (98-107) mmol/L Carbon Dioxide (22-32) mmol/L BUN (7-17) mg/dL Creatinine (0.52-1.04) mg/dL Estimated GFR (>60) mL/min BUN/Creatinine Ratio (6-22) Glucose (80-110) mg/dL Lactate (0.7-2.1) mmol/L Calcium (8.4-10.2) mg/dL Procalcitonin (<0.5) ng/mL CSF Tube Number CSF Volume CSF Appearance (Clear) CSF Color (Colorless) CSF WBC (0-5) MONO/uL CSF RBC RBC /uL CSF Mononuclear WBCs CSF Polynuclear WBCs CSF Glucose (40-70) mg/dL CSF Total Protein (12-60) mg/dL CSF C.neoform/gat PCR Not detected (Not Detect) CSF CMV DNA (PCR) Not detected (Not Detect) CSF Enterovirus (PCR) Not detected (Not Detect) CSF E. coli (PCR) Not detected (Not Detect) CSF H. influenzae (PCR) Not detected (Not Detect) CSF HSV I (PCR) Not detected (Not Detect) CSF HSV II (PCR) Not detected (Not Detect) CSF HHV 6 (PCR) Not detected (Not Detect) CSF L.monocytogenes PCR Not detected (Not Detect) CSF N. meningitidis PCR Not detected (Not Detect) CSF Parechovirus (PCR) Not detected (Not Detect) CSF S. agalactiae (PCR) Not detected (Not Detect) CSF S. pneumoniae (PCR) Not detected (Not Detect) CSF VZV (PCR) Not detected Ethyl Alcohol mg/dL Point of Care Testing Glucose POC 105 MDM Narrative Medical decision making narrative: Multiple etiologies for patient's symptoms considered including: [stroke vs. seizure vs. meningitis vs. encephalitis vs. early dementia vs. other] Patient's symptoms improved or duration of stay with above-stated therapies. Findings and discharge diagnosis discussed with patient/family followed by verbalization of understanding Return precautions discussed with patient/family whom verbalize understanding. Discharge Plan Departure Patient Disposition: Home Clinical Impression: Chronic confusion Headache Qualifiers: Headache type: other headache syndrome Qualified Code(s): G44.89 - Other headache syndrome Discharge Date/Time: 01/26/19 01:50 Interventions: ED Discharge Assessment Last Done: 01/26/19 01:58 Activity Restrictions/Additional Instructions: *You have been diagnosed with [ acute on chronic confusion, headache. CT scan, MRI, and spinal tap were all very reassuring ] *What to do: *Take medications as directed: tylenol / motrin for pain *Follow up with your primary care provider in 2-3 days, call for an appointment. Let them know you were seen in the Emergency Department and that we ask that you be seen in follow up *Return to ER if you should have any new, worsening or concerning symptoms Prescriptions: No Action atorvastatin 20 mg tablet 1 tab PO DAILY RF: 0 levetiracetam 500 mg tablet RF: 0 fluoxetine 10 mg capsule 1 tab PO DAILY RF: 0 acyclovir 200 mg capsule 1 tab PO BID RF: 0 Referrals: Darshana Alexander MD [Primary Care Provider] -
[2019-01-25] MEDS: KETOROLAC 60 MG/2 ML VIAL 15 MG IV (22:30)
[2019-01-25] MEDS: LIDOCAINE 2% INJ MDV 20 ML (23:41)
[2019-01-26 00:08] LABS: Glucose CSF 57 mg/dL (40-70); Total Protein CSF 43 mg/dL (12-60)
[2019-01-26 00:16] LABS: CSF Tube Number 3
[2019-01-26 00:17] LABS: Appearance CSF Clear (Clear); CSF Tube Volume 2.0 mL; Color CSF Colorless (Colorless); Red Blood Cell CSF 0 RBC /uL; White Blood Cell CSF 0 MONO/uL (0-5)
[2019-01-26 01:24] LABS: Cryptococcus neoformans/gattii Not Detected (Not Detect); Enterovirus Not Detected (Not Detect); Escherichia coli K1 Not Detected (Not Detect); Haemophilus influenzae Not Detected (Not Detect); Herpes simplex virus 1 Not Detected (Not Detect); Herpes simplex virus 2 Not Detected (Not Detect); Human herpesvirus 6 Not Detected (Not Detect); Human parechovirus Not Detected (Not Detect); Listeria monocytogenes Not Detected (Not Detect); Neisseria meningitidis Not Detected (Not Detect); Streptococcus agalactiae Not Detected (Not Detect); Streptococcus pneumoniae Not Detected (Not Detect); Varicella Zoster Virus Not Detected
[2019-01-26 01:58] VITALS: BP 135/73; PULSE 75; RESP 16; O2SAT 94
== END 2019-01-26 01:50 | disposition home or self-care (01) ==
PROVIDERS: Emergency Provider Emergency Medicine; PCP Internal Medicine
DX: R41.0 Disorientation, unspecified (principal); G44.89 Other headache syndrome
CPT/HCPCS: 36415; 36591; 62272; 70450; 70551; 80048; 80320; 82172; 82542; 82945; 82962; 83605; 84145; 84157; 85025; 85610; 85730; 86255; 86341; 87040; 87070; 87205; 87798; 89051; 93005; 96361; 96374; 99285; J1885

== ENCOUNTER → 2019-03-01 17:28 | Outpatient (CLI) | payer MEDICARE, OTHER, SELFPAY ==
--- NOTE | 2019-03-01 | DI.RAD.S_ITS ---
PROCEDURE: XR HIP W PEL IF DONE RT 2V INDICATIONS: RIGHT HIP PAIN TECHNIQUE: AP pelvis with lateral view(s) of the right hip(s). COMPARISON: None. FINDINGS: Bones: No fractures or dislocations. Pelvic ring appears intact. No suspicious bony lesions. Lower lumbar spondylosis. Bilateral hip arthroplasties. Hardware appears grossly intact. There is expected postoperative alignment. Soft tissues: The visualized bowel gas pattern is normal. No suspicious soft tissue calcifications. IMPRESSION: Expected alignment of bilateral hip arthroplasties. Dictated by: James Silverman M.D. on 03/01/2019 at 18:51 Approved by: James Silverman M.D. on 03/01/2019 at 18:52
== END ==
PROVIDERS: PCP Internal Medicine; Visit Provider Internal Medicine
DX: M25.551 Pain in right hip (principal); M47.816 Spondylosis without myelopathy or radiculopathy, lumbar region; Z96.643 Presence of artificial hip joint, bilateral
CPT/HCPCS: 73502

== ENCOUNTER → 2019-08-26 14:43 | Outpatient (CLI) | payer MEDICARE, OTHER, SELFPAY ==
--- NOTE | 2019-08-26 | DI.MG.S_ITS ---
BILATERAL DIGITAL SCREENING MAMMOGRAM 3D/2D WITH CAD WITH AUGMENTATION: 08/26/2019 CLINICAL: Routine screening. No prior exams were available for comparison. There are scattered fibroglandular elements in both breasts. Current study was also evaluated with a Computer Aided Detection (CAD) system. No significant masses, calcifications, or other findings are seen in either breast. IMPRESSION: The implants are ruptured. There is no mammographic evidence of malignancy. A 1 year screening mammogram is recommended. This exam was interpreted at Station ID: [id number]. NOTE: For mammograms, a report in lay terms will be sent to the patient. Approximately 15% of breast malignancies will not be visualized mammographically. In the management of a palpable breast mass, a negative mammogram must not discourage biopsy of a clinically suspicious lesion. Electronically Signed By: Sandra arcos/:08/26/2019 15:36:50 letter sent: Normal Exam ACR BI-RADS Category 2: Benign Finding(s) 3342F
== END ==
PROVIDERS: PCP Internal Medicine; Referring Provider Internal Medicine; Visit Provider Internal Medicine
DX: Z12.31 Encounter for screening mammogram for malignant neoplasm of breast (principal); Z98.82 Breast implant status; M81.0 Age-related osteoporosis without current pathological fracture; Z78.0 Asymptomatic menopausal state
CPT/HCPCS: 77063; 77067; 77080

== ENCOUNTER → 2020-07-24 10:42 | Outpatient (CLI) | payer MEDICARE, OTHER, SELFPAY ==
[2020-07-24] MEDS: COVID-19 VACC #1, MRNA(MOD) 100 MCG/0.5 ML VIAL IM (10:51)
== END ==
PROVIDERS: PCP Internal Medicine; Visit Provider Internal Medicine
DX: Z23 Encounter for immunization (principal)
CPT/HCPCS: 0011A; 91301

== ENCOUNTER → 2020-08-21 10:47 | Outpatient (CLI) | payer MEDICARE, OTHER, SELFPAY ==
[2020-08-21] MEDS: COVID-19 VACC #2, MRNA(MOD) 100 MCG/0.5 ML VIAL IM (10:53)
== END ==
PROVIDERS: PCP Internal Medicine; Visit Provider Internal Medicine
DX: Z23 Encounter for immunization (principal)
CPT/HCPCS: 0012A; 91301

== ENCOUNTER → 2020-10-28 16:26 | Outpatient (CLI) | payer MEDICARE, OTHER, SELFPAY | PROVIDERS: PCP Internal Medicine; Visit Provider Registered Nurse Diabetes Educator | DX: R35.0 Frequency of micturition (principal) | CPT/HCPCS: 87086 ==

== ENCOUNTER → 2020-11-03 14:58 | Outpatient (CLI) | payer MEDICARE, OTHER, SELFPAY | PROVIDERS: PCP Registered Nurse Diabetes Educator; Referring Provider Registered Nurse Diabetes Educator; Visit Provider Registered Nurse Diabetes Educator | DX: M85.88 Other specified disorders of bone density and structure, other site (principal); Z78.0 Asymptomatic menopausal state; Z82.62 Family history of osteoporosis | CPT/HCPCS: 77080 ==

== ENCOUNTER → 2020-11-11 07:26 | Outpatient (CLI) | payer MEDICARE, OTHER, SELFPAY ==
[2020-11-11 08:16] LABS: Hematocrit 42.5 % (36-46); Hemoglobin 14.7 g/dL (12.0-16.0); Mean Corpuscular HGB Conc 34.7 % (30-36); Mean Corpuscular Hemoglobin 32.4 PG (26-34); Mean Corpuscular Volume 93.4 fL (80-100); Platelet Count 288 X10^3/uL (150-400); Red Blood Cell Count 4.55 X10^6/uL (4.0-5.2); Red Cell Distribution Width 12.8 % (11.6-14.8); White Blood Cell Count 5.9 X10^3/uL (4.5-11.0)
[2020-11-11 08:34] LABS: Alanine Aminotransferase 27 IU/L (<35); Albumin 4.6 g/dL (3.5-5.0); Albumin Globulin Ratio 1.7 (1.0-2.8); Alkaline Phosphatase 70 U/L (38-126); Aspartate Aminotransferase 49 IU/L (14-36); BUN Creatinine Ratio 17.7 (6-22); Bilirubin Total 0.8 mg/dL (0.2-1.3); Blood Urea Nitrogen 14 mg/dL (7-17); C-Reactive Protein Quant 0.7 mg/dL (<1.0); Calcium 9.2 mg/dL (8.4-10.2); Carbon Dioxide 31 mmol/L (22-32); Chloride 101 mmol/L (98-107); Cholesterol 146 mg/dL (140-199); Estimated Glomerular Filt Rate > 60.0 mL/min (>60); Globulin 2.7 g/dL (1.7-4.1); Glucose 97 mg/dL (80-110); HDL Cholesterol 64 mg/dL (40-60); HEMOLYSIS 15 (0-50); LDL Cholesterol Calculated 66 mg/dL (<100); Potassium 4.1 mmol/L (3.4-5.1); Sodium 138 mmol/L (137-145); Total Protein 7.3 g/dL (6.3-8.2); Triglycerides 80 mg/dL (35-150)
[2020-11-11 08:36] LABS: Erythrocyte Sedimentation Rate 17 MM/HR (0-20)
[2020-11-11 09:03] LABS: TSH w/ Reflex to FT4 4.65 uIU/mL (0.47-4.68)
[2020-11-11 09:36] LABS: Appearance Urine UA SL CLOUDY; Bilirubin Urine UA NEGATIVE (NEGATIVE); Color Urine UA YELLOW; Glucose Urine UA NEGATIVE (Negative); Ketones Urine UA NEGATIVE (NEGATIVE); Leukocyte Esterase Urine UA 3+ (NEGATIVE); Nitrite Urine UA NEGATIVE (Negative); Occult Blood Urine UA 3+ (Negative); Protein Urine UA NEGATIVE (Negative); Urobilinogen Urine UA 0.2 E.U./dL (0.2)
[2020-11-11 09:38] LABS: pH Urine UA 7.5 (4.5-8.0)
[2020-11-11 09:59] LABS: RBC Urine 10-30/HPF (0-5/HPF)
[2020-11-11 10:00] LABS: Bacteria Urine Many (>30); Culture Indicated Urine Specimen Cultured; Squamous Epithelial Cell Urine 0-1 /HPF (0-5/HPF); WBC Urine 30-100/HPF (0-5/HPF)
== END ==
PROVIDERS: PCP Registered Nurse Diabetes Educator; Referring Provider Registered Nurse Diabetes Educator; Visit Provider Registered Nurse Diabetes Educator
DX: R03.0 Elevated blood-pressure reading, without diagnosis of hypertension (principal); E78.5 Hyperlipidemia, unspecified; R31.29 Other microscopic hematuria; R79.82 Elevated C-reactive protein (CRP); R79.89 Other specified abnormal findings of blood chemistry
CPT/HCPCS: 36415; 80053; 80061; 81001; 84443; 85027; 85651; 86140; 87077; 87086; 87186

== ENCOUNTER 2020-11-17 18:21 | Emergency (ER) | payer MEDICARE, OTHER, SELFPAY ==
[2020-11-17 18:33] VITALS: BP 194/84; PULSE 70; RESP 20; TEMP 36.7; O2SAT 100
--- NOTE | 2020-11-17 20:10 | ED.FALL ---
HPI - Fall General Chief Complaint: Fall Stated Complaint: FALL BUMP ON THE HEAD Time Seen by Provider: 11/17/20 20:01 Source: patient and family Mode of arrival: Wheelchair History of Present Illness HPI Narrative: Patient brought in by after tripping on the wheel of a shopping cart at [facility] 2 hours ago. Fell and bumped her head on ground. No loss of consciousness. They declined EMS transfer. Complains of right hip pain as well. Has bruising to the distal left tibia as well. Small contusion to the right knee. No nausea vomiting. No altered mental status confusion. No vision changes. No prior history of head injuries. Patient is not on a blood thinner. Blood pressure noted. Patient slightly anxious. Has 2 cm hematoma to the right upper outer forehead/scalp. No bleeding. Denies any neck pain back pain chest pain abdominal pain. Up and walking to the bathroom from her room to the bathroom. complaint: fall Related Data Home Medications Medication Instructions Recorded Confirmed acyclovir 1 tab PO BID 01/25/19 10/28/20 atorvastatin 1 tab PO DAILY 01/25/19 10/28/20 fluoxetine 1 tab PO DAILY 01/25/19 10/28/20 Previous Rx's Medication Instructions Recorded ciprofloxacin HCl 250 mg tablet 250 mg PO Q12H #14 tab 11/13/20 Allergies Allergy/AdvReac Type Severity Reaction Status Date / Time Sulfa (Sulfonamide Allergy Severe NAUSEA/ACHE Verified 10/16/20 15:56 Antibiotics) S [SULFA (SULFONAMIDE ANTIBIOTICS)] Review of Systems Review of Systems Narrative: GENERAL: Denies chills, fatigue, malaise, fever, sweats. HEENT: Denies sinus pain, ear pain, sore throat RESPIRATORY: Denies dyspnea, cough CARDIOVASCULAR: Denies chest pain, palpitations GASTROINTESTINAL: Denies nausea, vomiting, abdominal pain : Denies dysuria, frequency, hematuria MUSCULOSKELETAL: Complains muscle or bony pain SKIN: Denies rash, skin lesions NEUROLOGIC: Denies weakness, numbness ROS Unobtainable: All systems reviewed & are unremarkable except as noted in HPI and below Patient History Medical History Chicken pox (~1950) Chronic nasal congestion (~2015) Dyslipidemia Herpes (~1989) History of urinary incontinence (~2019) Melanoma (~2013) Memory change Osteoarthritis Osteoporosis Patient denies significant medical history Skin cancer (~2013) Surgical History Anesthesia History of hip replacement (~1999) History of tonsillectomy (~1973) Family History Brother Diabetes mellitus History of heart disease Social History (System 10/16/20 @ 15:56 by Caro Capone) Smoking Status: Former smoker Smoking Status: Former smoker alcohol intake frequency: 0-2 drinks per day Substance Use Type: does not use Exam Narrative Exam Narrative: GENERAL: in no distress, not toxic not dyspneic HEAD: Normocephalic. There is tenderness and edema to the right upper outer forehead/scalp. 2 cm hematoma. No crepitus or step-off. EYES: Pupils equal round No scleral icterus. No injection no discharge ENT: Mucous membranes moist. NECK: Trachea midline. CARDIOVASCULAR: Regular rate and rhythm without murmurs RESPIRATORY: Clear to auscultation. Breath sounds equal bilaterally. No wheezes, rales, or rhonchi. GASTROINTESTINAL: Abdomen soft, non-tender EXTREMITIES: No gross deformities. Nontender bilateral shoulders elbows wrists pelvis hips knees and ankles. Small hematoma to the distal left tibia, small contusion to the right patella. Able flex and extend at the bilateral hips knees and ankles BACK: No flank tenderness. NEURO: AOx4. SKIN: Warm and dry PSYCH: Not anxious, is cooperative Initial Vital Signs Initial Vital Signs: Vital Signs Temperature 98.0 F 11/17/20 18:33 Pulse Rate 70 11/17/20 18:33 Respiratory Rate 20 11/17/20 18:33 Blood Pressure 194/84 H 11/17/20 18:33 Pulse Oximetry 100 11/17/20 18:33 Course Course Course Narrative: No new issues during course of stay. Orders Ordered: ED Orders 11/17/20 20:09 CT head/brain wo con Stat XR hip w pel if done RT 2V Stat Reevaluation(s) Reevaluation #1: Reviewed results with patient and . Agree with treatment plan and discharge home and follow-up with primary care. Vital Signs Vital signs: Vital Signs - 8 hr 11/17/20 18:33 11/17/20 21:03 Temperature 98.0 F Pulse Rate 70 78 Respiratory Rate 20 Blood Pressure 194/84 H 172/96 H Pulse Oximetry 100 99 MDM - Fall Differential Diagnosis Differential diagnosis: Likely concussion without loss of consciousness and other (Scalp contusion/hip strain) Imaging Data CT scan - head: Radiologist's Impression: [address] [id number] Scan ReportSigned Patient: Linda Hopper CMR#: [id number]: 5Acct:[id number]/Sex: 75 / FDate of Service: 11/17/20Loc: EDAccession Number: [id number] Procedure: CT head/brain wo con Ordering Provider: Savage Mandujano MD PROCEDURE: CT HEAD/BRAIN WO CON INDICATIONS: Pain/injury/bump on head status post fall TECHNIQUE: Noncontrast 4.5 mm thick angled axial sections acquired from the foramen magnum to the vertex, with coronal and sagittal reformats. For radiation dose reduction, the following was used: automated exposure control, adjustment of mA and/or kV according to patient size. COMPARISON: [facility], CT, CT HEAD/BRAIN WO CON, 01/25/2019, 18:56. FINDINGS: Image quality: Excellent. CSF spaces: Basal cisterns are patent. No extra-axial fluid collections. The ventricles are symmetric in size and shape. Brain: No intracranial bleeds or masses. There is cerebral volume loss for age, with resultant ventricular and sulcal prominence. There are periventricular and deep white matter chronic small vessel ischemic changes. There is intracranial internal carotid artery atherosclerosis. Chronic right frontal calcification is unchanged Skull and face: Calvarium and visualized facial bones appear intact, without suspicious lesions. Right frontal scalp swelling Sinuses: Visualized sinuses and mastoids are clear. IMPRESSION: Right frontal scalp swelling. No acute intracranial process. Dictated by: James Silverman M.D. on 11/17/2020 at 20:37 Approved by: James Silverman M.D. on 11/17/2020 at 20:40 Extremity x-ray #1: Radiologist's Impression: [address] [id number] ReportSigned Patient: Linda Hopper CMR#: [id number]: 5Acct:[id number]/Sex: 75 / FDate of Service: 11/17/20Loc: EDAccession Number: [id number] Procedure: XR hip w pel if done RT 2V Ordering Provider: Savage Mandujano MD PROCEDURE: XR HIP W PEL IF DONE RT 2V INDICATIONS: Pain/injury TECHNIQUE: AP pelvis with lateral view(s) of the right hip(s). COMPARISON: [facility], CR, XR HIP W PEL IF DONE RT 2V, 03/01/2019, 17:38. FINDINGS: Bones: No acute fracture identified. Bilateral hip arthroplasties in unchanged, expected alignment. Lumbar spondylosis and facet arthropathy. No evidence of hardware loosening. Soft tissues: The visualized bowel gas pattern is normal. No suspicious soft tissue calcifications. IMPRESSION: Bilateral hip arthroplasties in expected alignment. No evidence of acute fracture. Dictated by: James Silverman M.D. on 11/17/2020 at 20:34 Approved by: James Silverman M.D. on 11/17/2020 at 20:36 MDM Narrative Medical decision making narrative: Appropriate for discharge home. Imaging and exam reassuring. Neurovascularly intact. Pain controlled. Patient and agree with treatment plan and follow-up with primary care Discharge Plan Departure Patient Disposition: Home Clinical Impression: Contusion of scalp Qualifiers: Encounter type: initial encounter Qualified Code(s): S00.03XA - Contusion of scalp, initial encounter Strain of right hip Qualifiers: Encounter type: initial encounter Qualified Code(s): S76.011A - Strain of muscle, fascia and tendon of right hip, initial encounter Instructions: DI for Contusion, DI for Closed Head Injury, DI for Hip Pain Activity Restrictions/Additional Instructions: Return if worsening questions concerns. See family doctor in a week for recheck. May use ice to sore areas 20 minutes at time for pain and swelling. May continue Tylenol or ibuprofen for pain. Be sure to have blood pressure recheck with her family doctor. Prescriptions: No Action ciprofloxacin HCl 250 mg tablet 250 mg PO Q12H Qty: 14 RF: 0 atorvastatin 20 mg tablet 1 tab PO DAILY RF: 0 fluoxetine 10 mg capsule 1 tab PO DAILY RF: 0 acyclovir 200 mg capsule 1 tab PO BID RF: 0 Referrals: Nicholas Talley ARNP [Primary Care Provider] -
[2020-11-17 21:03] VITALS: BP 172/96; PULSE 78; O2SAT 99
== END 2020-11-17 21:05 | disposition home or self-care (01) ==
PROVIDERS: Emergency Provider Emergency Medicine; PCP Registered Nurse Diabetes Educator
DX: S00.03XA Contusion of scalp, initial encounter (principal); S76.011A Strain of muscle, fascia and tendon of right hip, initial encounter; W19.XXXA Unspecified fall, initial encounter
CPT/HCPCS: 70450; 73502; 99281; 99283; 99284

== ENCOUNTER → 2021-09-09 12:22 | Outpatient (CLI) | payer MEDICARE, SELFPAY ==
--- NOTE | 2021-09-09 | DI.MRI.S_ITS ---
PROCEDURE: MR HEAD/BRAIN WO/W CON INDICATIONS: COGNITIVE IMPAIRMENT TECHNIQUE: Noncontrast axial T1 spin echo, axial T2 fast spin echo, sagittal and axial FLAIR, coronal T2 fast spin echo, axial gradient echo, axial diffusion and ADC through the brain. After the administration of contrast, axial and coronal T1 spin echo with fat saturation through the brain. COMPARISON: [facility], CT, CT HEAD/BRAIN WO CON, 11/17/2020, 20:15. [facility], MR, MR HEAD/BRAIN WO CON, 01/25/2019, 19:43. FINDINGS: Image quality: Excellent. CSF spaces: Basal cisterns are patent. No extra-axial fluid collections. Ventricles are normal in size and shape. Brain: No midline shift. No intracranial bleeds or masses. No abnormal intracranial enhancement. There is cerebral volume loss for age. There is mild, age-appropriate periventricular white matter chronic small vessel ischemic change. The brainstem appears normal. Diffusion-weighted images demonstrate no acute ischemic insults. No chronic ischemic insults. Normal intravascular flow voids are present. Skull and face: Calvarial marrow is normal in signal. Orbits appear normal. Sinuses: Sinuses and mastoids appear clear. IMPRESSION: Age-appropriate brain MRI with and without contrast. Mild small vessel ischemic change. No evidence of acute stroke, hemorrhage, or mass. Dictated by: Jose Jewell M.D. on 09/09/2021 at 13:22 Approved by: Jose Jewell M.D. on 09/09/2021 at 13:25
== END ==
PROVIDERS: PCP Internal Medicine; Referring Provider Internal Medicine; Visit Provider Internal Medicine
DX: R41.89 Other symptoms and signs involving cognitive functions and awareness (principal)
CPT/HCPCS: 70553

== ENCOUNTER 2023-08-18 15:44 | Emergency (ER) | payer MEDICARE, SELFPAY ==
[2023-08-18 16:08] VITALS: BP 166/79; PULSE 89; RESP 18; TEMP 36.6; O2SAT 97; BMI 20.2
--- NOTE | 2023-08-18 16:35 | ED.FALL ---
HPI - Fall <Veronica Lowe PA-C - Last Filed: 08/18/23 19:15> General Chief Complaint: Fall Stated Complaint: fell/mouth & lt hand inj Time Seen by Provider: 08/18/23 16:35 Source: patient Mode of arrival: Ambulatory History of Present Illness HPI Narrative: Patient is a 78-year-old female presenting with her for evaluation after a fall today. She states that she had an unwitnessed fall earlier today. She notes that she tripped in a crack in the asphalt while holding something in her arms and fell and hit her head on the ground. She reports that she feels the left side of her upper teeth were pushed in and her jaw does not feel like it sitting right. She denies any loss of consciousness. She does note that she chipped her left upper tooth. Her reports that she has had a baseline of primary memory decline over the last year and they are evaluating with a neurologist. He has not noticed any changes in her mentation since her fall. She endorses left hand pain. While in imaging, she endorsed left rib pain so left rib view with chest x-ray was added on. She denies any weakness in her extremities, denies taking anticoagulants. She believes her tetanus shot was updated within the last 10 years. She is concerned that she can feel that her left upper tooth appears to be somewhat loose, but the movement seems quite small. Related Data Previous Rx's Medication Instructions Recorded denosumab 60 mg/mL subcutaneous 60 mg SUBCUT [id number] #1 mL 08/11/21 syringe (Prolia) atorvastatin 20 mg tablet See Rx Instructions .Route 12/13/22 .COMPLEX #90 tabs fluoxetine 10 mg capsule See Rx Instructions .Route 12/13/22 .COMPLEX #90 caps Allergies Allergy/AdvReac Type Severity Reaction Status Date / Time Sulfa (Sulfonamide Allergy Severe NAUSEA/ACHE Verified 03/16/21 13:39 Antibiotics) S [SULFA (SULFONAMIDE ANTIBIOTICS)] Review of Systems <Veronica Lowe PA-C - Last Filed: 08/18/23 19:15> Review of Systems Narrative: See HPI Patient History <Veronica Lowe PA-C - Last Filed: 08/18/23 19:15> Medical History Osteopenia Liver enzyme elevation Dyslipidemia Melanoma (~2013) Osteoarthritis Chronic nasal congestion (~2015) Osteoporosis Chicken pox (~1949) Herpes (~1989) History of urinary incontinence (~2019) Skin cancer (~2013) Patient denies significant medical history Memory change Surgical History Anesthesia History of hip replacement (~1999) History of tonsillectomy (~1973) Family History Brother Diabetes mellitus History of heart disease Social History Smoking Status: Former smoker Smoking Status: Former smoker alcohol intake frequency: 0-2 drinks per day Substance Use Type: does not use Exam <Veronica Lowe PA-C - Last Filed: 08/18/23 19:15> Initial Vital Signs Initial Vital Signs: Vital Signs Temperature 97.9 F 08/18/23 16:08 Pulse Rate 89 08/18/23 16:08 Respiratory Rate 18 08/18/23 16:08 Blood Pressure 166/79 H 08/18/23 16:08 Pulse Oximetry 97 08/18/23 16:08 Oxygen Delivery Method Room Air 08/18/23 16:08 GENERAL: 78 year old patient appears stated age. Well-developed patient, in no acute distress. HEAD: Normocephalic. Light abrasion present over left lateral forehead, left upper lip has small scab EYES: Pupils equal round and reactive to light and accommodation. Extraocular motions intact. No scleral icterus. No injection or drainage. ENT: Nose without bleeding, purulent drainage. #9 tooth in left upper side has a small chip on the lateral aspect, no significant mobility noted on palpation of #10. Biting down on a popsicle stick shows no disruption to patient's bite on exam. Bite appears equal on both sides. NECK: Trachea midline. Non tender. CARDIOVASCULAR: Regular rate and rhythm without murmurs, gallops, or rubs. RESPIRATORY: Clear to auscultation. Breath sounds equal bilaterally. No wheezes, rales, or rhonchi. EXTREMITIES: No edema or joint tenderness. 2+ left radial pulse, elbow flexion extension intact bilaterally 5/5, industrial spray painter strength intact bilaterally 5/5, knee flexion extension strength intact bilaterally 5/5, abrasion noted over right knee, nontender to palpation of patellar tibia. BACK: Nontender without deformity or crepitance. No flank tenderness. Tenderness to palpation of left posterior ribs around T7. NEURO: AOx3. CN 3-12 intact bilaterally SKIN: Superficial abrasion over left anterior palm, <Loyda Kilgore DO - Last Filed: 08/18/23 19:31> Initial Vital Signs Initial Vital Signs: Vital Signs Temperature 97.9 F 08/18/23 16:08 Pulse Rate 89 08/18/23 16:08 Respiratory Rate 18 08/18/23 16:08 Blood Pressure 166/79 H 08/18/23 16:08 Pulse Oximetry 97 08/18/23 16:08 Oxygen Delivery Method Room Air 08/18/23 16:08 Course <Veronica Lowe PA-C - Last Filed: 08/18/23 19:15> Orders Ordered: ED Orders 08/18/23 16:37 CT facial bones wo con Stat 08/18/23 16:38 CT cervical spine wo con Stat CT head/brain wo con Stat 08/18/23 16:42 XR hand LT min 3V Stat 08/18/23 16:50 XR ribs LT min 3V w CXR1V Stat Vital Signs Vital signs: Vital Signs - 8 hr 08/18/23 16:08 08/18/23 18:10 Temperature 97.9 F Pulse Rate 89 81 Respiratory Rate 18 18 Blood Pressure 166/79 H 179/86 H Pulse Oximetry 97 98 Oxygen Delivery Method Room Air Room Air <Loyda Kilgore DO - Last Filed: 08/18/23 19:31> Orders Ordered: ED Orders 08/18/23 16:37 CT facial bones wo con Stat 08/18/23 16:38 CT cervical spine wo con Stat CT head/brain wo con Stat 08/18/23 16:42 XR hand LT min 3V Stat 08/18/23 16:50 XR ribs LT min 3V w CXR1V Stat Vital Signs Vital signs: Vital Signs - 8 hr 08/18/23 16:08 08/18/23 18:10 Temperature 97.9 F Pulse Rate 89 81 Respiratory Rate 18 18 Blood Pressure 166/79 H 179/86 H Pulse Oximetry 97 98 Oxygen Delivery Method Room Air Room Air MDM - Fall <Veronica Lowe PA-C - Last Filed: 08/18/23 19:15> Imaging Data XR Ribs LT with CXR: Radiologist's Impression: PROCEDURE: XR RIBS LT MIN 3V W CXR1V INDICATIONS: Left rib pain TECHNIQUE: 2 views of the ribs were acquired, along with a single view chest. COMPARISON: None. FINDINGS: Surgical changes and devices: None. Bones and chest wall: No fractures or dislocations. No suspicious bony lesions. Overlying soft tissues appear unremarkable. Lungs and pleura: No pleural effusions or pneumothorax. Lungs appear clear. Mediastinum: Mediastinal contours appear normal. Heart size is normal. IMPRESSION: No displaced rib fracture or pneumothorax. Dictated by: Javier Mathews M.D. on 08/18/2023 at 17:29 Approved by: Javier Mathews M.D. on 08/18/2023 at 17:29 XR Left Hand: Radiologist's Impression: PROCEDURE: XR HAND LT MIN 3V INDICATIONS: left 3rd and 4th metacarpal pain TECHNIQUE: 3 views of the hand(s) acquired. COMPARISON: None. FINDINGS: Bones: No fractures or dislocations. Carpal bones are normally aligned. No suspicious bony lesions. Soft tissues: No suspicious soft tissue calcifications. IMPRESSION: No acute bony abnormality. Dictated by: Javier Mathews M.D. on 08/18/2023 at 17:29 Approved by: Javier Mathews M.D. on 08/18/2023 at 17:[address]: Radiologist's Impression: PROCEDURE: CT HEAD/BRAIN WO CON INDICATIONS: fall TECHNIQUE: Noncontrast 4.5 mm thick angled axial sections acquired from the foramen magnum to the vertex, with coronal and sagittal reformats. For radiation dose reduction, the following was used: automated exposure control, adjustment of mA and/or kV according to patient size. COMPARISON: [facility], MR, MR BRAIN WITH/WITHOUT CONTRAST, 08/13/2023, 14:20. [facility], CT, CT FACIAL BONES WO CON, 08/18/2023, 16:47. [facility], CT, CT CERVICAL SPINE WO CON, 08/18/2023, 16:47. [facility], CT, CT HEAD/BRAIN WO CON, 01/25/2019, 18:56. FINDINGS: Image quality: Diagnostic. CSF spaces: Basal cisterns are patent. No extra-axial fluid collections. The ventricles are symmetric in size and shape. Brain: No intracranial bleeds or masses. There is cerebral volume loss for age, with resultant ventricular and sulcal prominence. There are periventricular and deep white matter chronic small vessel ischemic changes. There is intracranial internal carotid artery atherosclerosis. Skull and face: Calvarium and visualized facial bones appear intact, without suspicious lesions. Sinuses: Visualized sinuses and mastoids are clear. IMPRESSION: No acute intracranial hemorrhage is seen. No acute intracranial pathology. Dictated by: Antonio Redd M.D. on 08/18/2023 at 16:07 Approved by: Antonio Redd M.D. on 08/18/2023 at 16:08 CT - cervical spine: Radiologist's Impression: PROCEDURE: CT CERVICAL SPINE WO CON INDICATIONS: fall TECHNIQUE: Noncontrast 3 mm thick sections acquired from the skull base to the T4 level. Sagittal and coronal reformats were then constructed. For radiation dose reduction, the following was used: automated exposure control, adjustment of mA and/or kV according to patient size. COMPARISON: [facility], CT, CT HEAD/BRAIN WO CON, 08/18/2023, 16:47. [facility], CT, CT FACIAL BONES WO CON, 08/18/2023, 16:47. FINDINGS: Image quality: Excellent. Bones: No fractures or dislocations. Visualized superior ribs are intact. Focal degenerative change is seen involving the C1-C2 interface anteriorly. There is moderate disc space narrowing seen at the C5-C6 level. Milder degenerative changes are seen elsewhere. Multiple levels of facet hypertrophy can be seen. Soft tissues: Prevertebral soft tissues are normal in thickness. No paravertebral hematomas. No apical pneumothoraces. Atherosclerotic calcification is noted. IMPRESSION: No displaced fracture or traumatic subluxation. Dictated by: Antonio Redd M.D. on 08/18/2023 at 16:09 Approved by: Antonio Redd M.D. on 08/18/2023 at 16:10 CT Face : Radiologist's Impression: PROCEDURE: CT FACIAL BONES WO CON INDICATIONS: fall TECHNIQUE: Noncontrast 2.5 mm thick axial images acquired from the mandible through the frontal sinuses, with coronal and sagittal reformatting. For radiation dose reduction, the following was used: automated exposure control, adjustment of mA and/or kV according to patient size. COMPARISON: [facility], CT, CT HEAD/BRAIN WO [facility], 08/18/2023, 16:47. [facility], CT, CT CERVICAL SPINE WO [facility], 08/18/2023, 16:47. FINDINGS: Image quality: There is artifact associated with the metallic hardware. Artifact from the metallic hardware is reduced by metal reconstruction algorithm. Bones and teeth: Orbital solis are intact. Sinus solis show no fracture or deformity. Nasal bones and septum are intact. Visualized portions of the mandible demonstrate no fractures or subluxation. Zygomatic arches are intact. Pterygoid plates are intact. Visualized portions of the skull base and auditory canals are intact. Sinuses: Paranasal sinuses are aerated, without fluid levels, mucosal thickening, or mucoceles. Mastoid air cells are aerated. Soft tissues: No edema, masses, or fluid collections. No enlarged lymph nodes. No soft tissue lacerations or debris. Vascular: Visualized vascular structures appear normal in the absence of contrast. Bony vascular foramina and canals are intact. IMPRESSION: Negative for displaced facial bone fracture. Dictated by: Antonio Redd M.D. on 08/18/2023 at 16:02 Approved by: Antonio Redd M.D. on 08/18/2023 at 16:[address] [facility] Narrative Medical decision making narrative: Patient is a 78-year-old female presenting after a fall onto her face earlier today. She chipped her left upper tooth, felt that her #10 tooth was loose and felt her jaw did not sit right. CT of face did not show any evidence of dislocation or fracture. No evidence of intracranial bleed on CT head, no evidence of cervical fracture noted on CT of neck. X-ray of left hand and left ribs shows no evidence of fracture No tetanus shot needed today since patient believes it has been done in the last 10 years. Abrasion to left palm was washed and bandage prior to discharge. Discussed warning signs to monitor for including visual disturbance change in mentation, vomiting or other concerning signs or symptoms to watch for and returned to the ER if symptoms should develop. I advised him to follow up with dentist to address chipped tooth and sensation of loose tooth and to remain on a soft diet until follow up. They are agreeable with plan of care Consultations: Reviewed case with Dr. Kilgore, based upon negative imaging, patient should be stable for discharge and follow up with dentist. Patient's symptoms improved over duration of stay with above-stated therapies. Findings and discharge diagnosis discussed with patient/family followed by verbalization of understanding Return precautions discussed with patient/family whom verbalize understanding of diagnosis and plan Discharge Plan Departure Patient Disposition: Home Clinical Impression: Abrasion of face Qualifiers: Encounter type: initial encounter Qualified Code(s): S00.81XA - Abrasion of other part of head, initial encounter Chipped tooth Qualifiers: Encounter type: initial encounter Fracture type: closed Qualified Code(s): S02.5XXA - Fracture of tooth (traumatic), initial encounter for closed fracture Activity Restrictions/Additional Instructions: You were evaluated today after fall earlier today. Thankfully there was no abnormal findings on her imaging. Imaging to evaluate your left hand pain, left rib pain showed no evidence of fracture. CT imaging of your face and cervical spine did not show any evidence of fracture or dislocation of neck jaw or face. Head CT did not show any evidence of brain bleed. You sustained an abrasion to her left palm as well as to the left side of your face. You have also chipped your front left upper tooth #9. I recommend that you start a soft diet and follow up with your dentist for further evaluation. Please follow up in the ER if you should develop any visual disturbance, dizziness, change to baseline memory, weakness any extremity or other concerning signs or symptoms. It was a pleasure meeting you today. *Please follow up with your primary care provider in 2-3 days, call for an appointment. Let them know you were seen in the Emergency Department and that we ask that you be seen in follow up. We will electronically transmit a record of today's note if your PCP is in our system *If you do not have a primary care provider please contact the [facility] Resource line at [phone]. They will ask some questions about your medical history and help get you set up with a doctor in the community. *Return to Emergency Department if you should have any new, worsening or concerning symptoms. Prescriptions: No Action Prolia 60 mg/mL syringe 60 mg SUBCUT [id number] Qty: 1 0RF fluoxetine 10 mg capsule See Rx Instructions .ROUTE .COMPLEX Qty: 90 0RF Dose Instruction: TAKE 1 CAPSULE BY MOUTH EVERY DAY IN THE MORNING Rx Instructions: TAKE 1 CAPSULE BY MOUTH EVERY DAY IN THE MORNING atorvastatin 20 mg tablet See Rx Instructions .ROUTE .COMPLEX Qty: 90 0RF Dose Instruction: TAKE 1 TABLET BY MOUTH DAILY Rx Instructions: TAKE 1 TABLET BY MOUTH DAILY Referrals: Murphy Patel MD [Primary Care Provider] - Stand Alone Forms: Patient Portal/API ED Sign-out <Loyda Kilgore DO - Last Filed: 08/18/23 19:31> Cosign ED Attending Cosignature Attestation: I was available for consultation. Was consulted about this patient but never evaluated. Discussed imaging. No need for further workup discussed using popsicle stick to make sure teeth are aligned
--- NOTE | 2023-08-18 16:38 | DI.CT.S_ITS ---
PROCEDURE: CT HEAD/BRAIN WO CON INDICATIONS: fall TECHNIQUE: Noncontrast 4.5 mm thick angled axial sections acquired from the foramen magnum to the vertex, with coronal and sagittal reformats. For radiation dose reduction, the following was used: automated exposure control, adjustment of mA and/or kV according to patient size. COMPARISON: [facility], MR, MR BRAIN WITH/WITHOUT CONTRAST, 08/13/2023, 14:20. [facility], CT, CT FACIAL BONES WO CON, 08/18/2023, 16:47. [facility], CT, CT CERVICAL SPINE WO CON, 08/18/2023, 16:47. [facility], CT, CT HEAD/BRAIN WO CON, 01/25/2019, 18:56. FINDINGS: Image quality: Diagnostic. CSF spaces: Basal cisterns are patent. No extra-axial fluid collections. The ventricles are symmetric in size and shape. Brain: No intracranial bleeds or masses. There is cerebral volume loss for age, with resultant ventricular and sulcal prominence. There are periventricular and deep white matter chronic small vessel ischemic changes. There is intracranial internal carotid artery atherosclerosis. Skull and face: Calvarium and visualized facial bones appear intact, without suspicious lesions. Sinuses: Visualized sinuses and mastoids are clear. IMPRESSION: No acute intracranial hemorrhage is seen. No acute intracranial pathology. Dictated by: Antonio Redd M.D. on 08/18/2023 at 16:07 Approved by: Antonio Redd M.D. on 08/18/2023 at 16:08
--- NOTE | 2023-08-18 16:38 | DI.CT.S_ITS ---
PROCEDURE: CT CERVICAL SPINE WO CON INDICATIONS: fall TECHNIQUE: Noncontrast 3 mm thick sections acquired from the skull base to the T4 level. Sagittal and coronal reformats were then constructed. For radiation dose reduction, the following was used: automated exposure control, adjustment of mA and/or kV according to patient size. COMPARISON: [facility], CT, CT HEAD/BRAIN WO CON, 08/18/2023, 16:47. [facility], CT, CT FACIAL BONES WO CON, 08/18/2023, 16:47. FINDINGS: Image quality: Excellent. Bones: No fractures or dislocations. Visualized superior ribs are intact. Focal degenerative change is seen involving the C1-C2 interface anteriorly. There is moderate disc space narrowing seen at the C5-C6 level. Milder degenerative changes are seen elsewhere. Multiple levels of facet hypertrophy can be seen. Soft tissues: Prevertebral soft tissues are normal in thickness. No paravertebral hematomas. No apical pneumothoraces. Atherosclerotic calcification is noted. IMPRESSION: No displaced fracture or traumatic subluxation. Dictated by: Antonio Redd M.D. on 08/18/2023 at 16:09 Approved by: Antonio Redd M.D. on 08/18/2023 at 16:10
--- NOTE | 2023-08-18 16:42 | DI.RAD.S_ITS ---
PROCEDURE: XR HAND LT MIN 3V INDICATIONS: left 3rd and 4th metacarpal pain TECHNIQUE: 3 views of the hand(s) acquired. COMPARISON: None. FINDINGS: Bones: No fractures or dislocations. Carpal bones are normally aligned. No suspicious bony lesions. Soft tissues: No suspicious soft tissue calcifications. IMPRESSION: No acute bony abnormality. Dictated by: Javier Mathews M.D. on 08/18/2023 at 17:29 Approved by: Javier Mathews M.D. on 08/18/2023 at 17:29
--- NOTE | 2023-08-18 16:50 | DI.RAD.S_ITS ---
PROCEDURE: XR RIBS LT MIN 3V W CXR1V INDICATIONS: Left rib pain TECHNIQUE: 2 views of the ribs were acquired, along with a single view chest. COMPARISON: None. FINDINGS: Surgical changes and devices: None. Bones and chest wall: No fractures or dislocations. No suspicious bony lesions. Overlying soft tissues appear unremarkable. Lungs and pleura: No pleural effusions or pneumothorax. Lungs appear clear. Mediastinum: Mediastinal contours appear normal. Heart size is normal. IMPRESSION: No displaced rib fracture or pneumothorax. Dictated by: Javier Mathews M.D. on 08/18/2023 at 17:29 Approved by: Javier Mathews M.D. on 08/18/2023 at 17:29
[2023-08-18 18:10] VITALS: BP 179/86; PULSE 81; RESP 18; O2SAT 98
== END 2023-08-18 18:18 | disposition home or self-care (01) ==
PROVIDERS: Emergency Provider Physician Assistant; PCP Internal Medicine
DX: S00.81XA Abrasion of other part of head, initial encounter (principal); S02.5XXA Fracture of tooth (traumatic), initial encounter for closed fracture; M79.642 Pain in left hand; R07.81 Pleurodynia; W18.30XA Fall on same level, unspecified, initial encounter
CPT/HCPCS: 70450; 70486; 71101; 72125; 73130; 99281; 99284

== ENCOUNTER 2023-10-10 17:02 | Emergency (ER) | payer MEDICARE, SELFPAY ==
[2023-10-10 17:19] VITALS: BP 129/74; PULSE 100; RESP 18; TEMP 36.4; O2SAT 94; BMI 21.6
--- NOTE | 2023-10-10 17:28 | DI.RAD.S_ITS ---
PROCEDURE: XR HIP W PEL IF DONE RT 2V INDICATIONS: pain TECHNIQUE: AP pelvis with lateral view(s) of the right hip(s). COMPARISON: [facility], CR, XR HIP W PEL IF DONE RT 2V, 11/17/2020, 20:08. [facility], CR, XR HIP W PEL IF DONE RT 2V, 03/01/2019, 17:38. FINDINGS: Bones: No fractures or dislocations. Stable appearance of bilateral hip arthroplasties. The hardware appears intact without surrounding fracture or lucency. Pelvic ring appears intact. No suspicious bony lesions. Soft tissues: The visualized bowel gas pattern is normal. No suspicious soft tissue calcifications. IMPRESSION: No acute osseous abnormalities. Stable appearance of hip arthroplasties without evidence of complication. Dictated by: Blake Ross M.D. on 10/10/2023 at 19:54 Approved by: Blake Ross M.D. on 10/10/2023 at 19:55
--- NOTE | 2023-10-10 17:51 | ED_ITS ---
HPI - Extremity Injury (Lower) <Veronica Lowe PA-C - Last Filed: 10/10/23 20:09> General Chief Complaint: Extremity Injury, Lower Stated Complaint: Rt side hip pain, artificial hips Time Seen by Provider: 10/10/23 17:34 Source: patient Mode of arrival: Ambulatory History of Present Illness HPI Narrative: Patient is a 78-year-old female presenting for evaluation after an episode of wooziness this morning at 6:30 a.m. resulting in a slow controlled fall onto the floor. Her came to her when she called out from the bathroom where she was feeling woozy. He reports that she was hanging onto the sink with her arms. He held her and, and she let go and slid to the floor without hitting her head. He describes it as a very gentle descent. She was unable to get up after that event due to pain in her right hip. He had a neighbor come and help her up into the bed. She reports a few other episodes of wooziness after that initial episode, but none quite as bad. She denies any chest pain or palpitations or shortness of breath. states that she has been able to walk with assistance since the incident, but quite gingerly due to the pain in her right hip. He reports she last had 800 mg of ibuprofen at 2:30 p.m.. She does report improvement with application of Voltaren gel. She was seen for a fall in the ER by myself in July with no adverse findings other than a chipped upper tooth. Her notified me that they were evaluating slow decline in his 's memory with a neurologist. Patient reports that both her hips have been replaced. She reports she has had some pain recently in her right hip which is a sharp sensation pointing toward her groin. She denies other trauma. She denies any anticoagulant use. She reports taking Prolia injections for osteoporosis. Primary care is in [place]. She reports bilateral hip [place] [address] Lucas through [facility]. Related Data Previous Rx's Medication Instructions Recorded denosumab 60 mg/mL subcutaneous 60 mg SUBCUT [id number] #1 mL 08/11/21 syringe (Prolia) atorvastatin 20 mg tablet See Rx Instructions .Route 12/13/22 .COMPLEX #90 tabs fluoxetine 10 mg capsule See Rx Instructions .Route 12/13/22 .COMPLEX #90 caps Allergies Allergy/AdvReac Type Severity Reaction Status Date / Time Sulfa (Sulfonamide Allergy Severe NAUSEA/ACHE Verified 03/16/21 13:39 Antibiotics) S [SULFA (SULFONAMIDE ANTIBIOTICS)] Review of Systems <Veronica Lowe PA-C - Last Filed: 10/10/23 20:09> Review of Systems Narrative: see HPI Patient History <Veronica Lowe PA-C - Last Filed: 10/10/23 20:09> Medical History Osteopenia Liver enzyme elevation Dyslipidemia Melanoma (~2013) Osteoarthritis Chronic nasal congestion (~2015) Osteoporosis Chicken pox (~1949) Herpes (~1989) History of urinary incontinence (~2019) Skin cancer (~2013) Patient denies significant medical history Memory change Surgical History Anesthesia History of hip replacement (~1999) History of tonsillectomy (~1973) Family History Brother Diabetes mellitus History of heart disease Social History Smoking Status: Former smoker Smoking Status: Former smoker alcohol intake frequency: other Substance Use Type: does not use Exam <Veronica Lowe PA-C - Last Filed: 10/10/23 20:09> Initial Vital Signs Initial Vital Signs: Vital Signs Temperature 97.5 F L 10/10/23 17:19 Pulse Rate 100 H 10/10/23 17:19 Respiratory Rate 18 10/10/23 17:19 Blood Pressure 129/74 10/10/23 17:19 Pulse Oximetry 94 10/10/23 17:19 Oxygen Delivery Method Room Air 10/10/23 17:19 GENERAL: 78 year old patient appears stated age. Well-developed patient, in no acute distress. HEAD: Atraumatic. Normocephalic. EYES: Pupils equal round and reactive. Extraocular motions intact. No scleral icterus. No injection or drainage. ENT: Throat without erythema, tonsillar hypertrophy or exudate. Airway patent. NECK: Trachea midline. Non tender. CARDIOVASCULAR: Regular rate and rhythm without murmurs, gallops, or rubs. RESPIRATORY: Clear to auscultation. Breath sounds equal bilaterally. No wheezes, rales, or rhonchi. EXTREMITIES: Bilateral shoulder flexion maintain for 10 seconds, bilateral outstretched leg maintain times 10 seconds bilaterally, 5/5 elbow flexion extension strength equal bilaterally, 5/5 bilateral vp & general counsel strength equal bilaterally, 5/5 bilateral knee flexion extension strength bilaterally, patient demonstrates intact strength with bilateral hip flexion and extension, she does express some increased pain with internal rotation of bilateral hips as well as external rotation of bilateral hips. Nontender to palpation of proximal right tibia or fibula, tender to palpation of right anterolateral groin, nontender over greater trochanter BACK: Nontender without deformity or crepitance. No flank tenderness. NEURO: AOx3. CN 3 through 12 intact bilaterally, appreciated nasolabial fold on both sides of face with normal facial expression SKIN: No rash or erythema of visible areas <Yulia Dong MD - Last Filed: 10/10/23 20:18> Initial Vital Signs Initial Vital Signs: Vital Signs Temperature 97.5 F L 10/10/23 17:19 Pulse Rate 100 H 10/10/23 17:19 Respiratory Rate 18 10/10/23 17:19 Blood Pressure 129/74 10/10/23 17:19 Pulse Oximetry 94 10/10/23 17:19 Oxygen Delivery Method Room Air 10/10/23 17:19 Course <Veronica Lowe PA-C - Last Filed: 10/10/23 20:09> Orders Ordered: ED Orders 10/10/23 16:10 CBC Auto Diff [Complete Blood Count AUTO DIFF] Stat CMP [Comprehensive Metabolic Panel] Stat Troponin & CK Cardiac Panel Stat 10/10/23 17:28 XR hip w pel if done RT 2V Stat 10/10/23 17:55 EKG-12 Lead Stat 10/10/23 18:00 CXR [XR chest 2V] Stat 10/10/23 19:38 UA dip and micro [Urinalysis and Microscopic] Stat Urine Culture Stat Vital Signs Vital signs: Vital Signs - 8 hr 10/10/23 17:19 10/10/23 18:42 10/10/23 20:05 Temperature 97.5 F L Pulse Rate 100 H 78 Pulse Rate [Right Posterior Tibial] 66 Respiratory Rate 18 16 Blood Pressure 129/74 163/80 H Pulse Oximetry 94 99 Oxygen Delivery Method Room Air Room Air 10/10/23 20:06 Temperature 97.6 F Pulse Rate Pulse Rate [Right Posterior Tibial] Respiratory Rate Blood Pressure Pulse Oximetry Oxygen Delivery Method <Yulia Dong MD - Last Filed: 10/10/23 20:18> Orders Ordered: ED Orders 10/10/23 16:10 CBC Auto Diff [Complete Blood Count AUTO DIFF] Stat CMP [Comprehensive Metabolic Panel] Stat Troponin & CK Cardiac Panel Stat 10/10/23 17:28 XR hip w pel if done RT 2V Stat 10/10/23 17:55 EKG-12 Lead Stat 10/10/23 18:00 CXR [XR chest 2V] Stat 10/10/23 19:38 UA dip and micro [Urinalysis and Microscopic] Stat Urine Culture Stat Vital Signs Vital signs: Vital Signs - 8 hr 10/10/23 17:19 10/10/23 18:42 10/10/23 20:05 Temperature 97.5 F L Pulse Rate 100 H 78 Pulse Rate [Right Posterior Tibial] 66 Respiratory Rate 18 16 Blood Pressure 129/74 163/80 H Pulse Oximetry 94 99 Oxygen Delivery Method Room Air Room Air 10/10/23 20:06 Temperature 97.6 F Pulse Rate Pulse Rate [Right Posterior Tibial] Respiratory Rate Blood Pressure Pulse Oximetry Oxygen Delivery Method MDM - Extremity Injury (Lower) <Veronica Lowe PA-C - Last Filed: 10/10/23 20:09> Lab Data 10/10/23 16:10 10/10/23 16:10 Labs: Lab Results 10/10/23 10/10/23 Range/Units 16:10 19:38 WBC 9.9 (4.5-11.0) X10^3/uL RBC 4.33 (4.0-5.2) X10^6/uL Hgb 14.1 (12.0-16.0) g/dL Hct 40.2 (36-46) % MCV 92.8 (80-100) fL MCH 32.5 (26-34) PG MCHC 35.0 (30-36) % RDW 12.5 (11.6-14.8) % Plt Count 327 (150-400) X10^3/uL Neut % (Auto) 79.7 H (50-75) % Lymph % (Auto) 10.1 L (25-40) % [place] % (Auto) 8.3 (3-14) % Eos % (Auto) 1.2 L (2-4) % Baso % (Auto) 0.7 (0-2) % Neut # (Auto) 7900 H (7066-7311) /uL Lymph # (Auto) 1000 L (5211-8633) /uL [place] # (Auto) 800 (0-900) /uL Eos # (Auto) 100 (0-450) /uL Baso # (Auto) 100 (0-100) /uL Sodium 137 (137-145) mmol/L Potassium 3.8 (3.4-5.1) mmol/L Chloride 101 (98-107) mmol/L Carbon Dioxide 29 (22-32) mmol/L BUN 16 (7-17) mg/dL Creatinine 0.58 (0.52-1.04) mg/dL Estimated GFR > 60 (>60) mL/min BUN/Creatinine Ratio 27.6 H (6-22) Glucose 114 H (80-110) mg/dL Calcium 9.3 (8.4-10.2) mg/dL Total Bilirubin 0.7 (0.2-1.3) mg/dL AST 33 (14-36) IU/L ALT 24 (<35) IU/L Alkaline Phosphatase 93 (38-126) U/L Total Creatine Kinase 79 (30-135) U/L Troponin I < 0.012 (0.01-0.034) ng/mL Total Protein 8.1 (6.3-8.2) g/dL Albumin 4.8 (3.5-5.0) g/dL Globulin 3.3 (1.7-4.1) g/dL Albumin/Globulin Ratio 1.5 (1.0-2.8) Urine Color Yellow Urine Appearance Clear Urine pH 7.0 (4.5-8.0) Ur Specific [place] 1.010 (1.000-1.035) Urine Protein Negative (Negative) Urine Glucose (UA) Negative (Negative) g/dL Urine Ketones Negative (NEGATIVE) Urine Occult Blood 2+ H (Negative) Urine Nitrate Negative (Negative) Urine Bilirubin Negative (NEGATIVE) Urine Urobilinogen 0.2 (0.2) E.U./dL Ur Leukocyte Esterase Negative (NEGATIVE) Urine RBC 5-10/hpf H (0-5/HPF) Urine WBC 1-5/hpf (0-5/HPF) Ur Squamous Epith Cells 0-1 /hpf (0-5/HPF) Urine Bacteria Many (>30) H (None) Ur Culture Indicated? Specimen cultured Vol Urine Centrifuged 10ml (spun) Urine Dip Bedside Urine Glucose Negative Bedside Urine Bilirubin - Negative Bedside Urine Ketone - Negative Urine Specific [place] 1.01 Bedside Urine Occult Blood ++ Bedside Urine pH 6.5 Bedside Urine Protein - Negative Bedside Urine Urobilinogen - Negative Bedside Urine Nitrite - Negative Bedside Urine Leukocytes - Negative Esterase Imaging Data Chest x-ray: Radiologist's Impression: PROCEDURE: XR CHEST 2V INDICATIONS: wooziness this morning TECHNIQUE: 2 views of the chest were acquired. COMPARISON: [facility], [facility], XR CHEST 2V, 07/31/2018, 9:47. FINDINGS: Surgical changes and devices: None. Lungs and pleura: Lungs are clear. No pleural effusions or pneumothorax. Mediastinum: Mediastinal contours are normal. Heart size is normal. Bones and chest wall: No suspicious bony abnormalities. Soft tissues appear unremarkable. IMPRESSION: No acute cardiopulmonary abnormality is seen. Dictated by: Adama Tirado M.D. on 10/10/2023 at 19:57 Approved by: Adama Tirado M.D. on 10/10/2023 at 19:57 Rt Hip: Radiologist's Impression: PROCEDURE: XR HIP W PEL IF DONE RT 2V INDICATIONS: pain TECHNIQUE: AP pelvis with lateral view(s) of the right hip(s). COMPARISON: [facility], [facility], XR HIP W PEL IF DONE RT 2V, 11/17/2020, 20:08. [facility], [facility], XR HIP W PEL IF DONE RT 2V, 03/01/2019, 17:38. FINDINGS: Bones: No fractures or dislocations. Stable appearance of bilateral hip arthroplasties. The hardware appears intact without surrounding fracture or lucency. Pelvic ring appears intact. No suspicious bony lesions. Soft tissues: The visualized bowel gas pattern is normal. No suspicious soft tissue calcifications. IMPRESSION: No acute osseous abnormalities. Stable appearance of hip arthroplasties without evidence of complication. Dictated by: Blake Ross M.D. on 10/10/2023 at 19:54 Approved by: Blake Ross M.D. on 10/10/2023 at 19:55 ECG Data Interpretation: Normal sinus rhythm, no ST elevations or inversion noted, no significant changes compared to previous EKG in September and January 2019. [facility] Narrative Medical decision making narrative: Patient is a 78-year-old female presenting for evaluation after a controlled fall assisted by her this morning after an episode of lightheadedness. She denies hitting her head or taking anticoagulants. She reported feeling woozy, but denied palpitations or chest pain. 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 She had a recent fall in July of this year seen by myself with no significant injuries. On physical exam, she exhibits tenderness in her right groin worse with external rotation of her right hip, though she demonstrates appropriate strength with flexion,extension and ability to internally and externally rotate her hip. She attributes her feeling of wooziness to a sudden onset of pain in her right hip, but want to make sure to rule out UTI or emergent cardiac or neurological cause. Multiple etiologies for patient's symptoms considered including, but not limited to: Cardiac etiology, right hip fracture, bursitis, UTI, arthritis I have ordered UA, cardiac labs, chest x-ray, imaging of right hip Prior Charts reviewed: ER visit 08/18/2023 Labs reviewed and interpreted by myself: Slightly elevated neutrophils, no elevated white count on CBC, CMP within normal range, troponin and creatinine kinase within normal range Imaging reviewed: Chest x-ray showed no cardiopulmonary abnormality, right hip x-ray showed no abnormality, fracture or dislocation UA did not show any evidence of leukocyte esterase, there was some blood present, and it has been sent for micro and culture if bacteria is present. Consultations: Discussed case with Dr. Dong, cardiac labs, vital signs and present state are encouraging, we will await imaging results. Imaging shows no abnormalities. Discussed with patient that she should be safe for discharge home. I recommend that she continue follow up in investigation with her primary care provider if wheeziness should continue. I recommend continued follow up also regarding the pain in her right hip. She may do gentle [id number] stretches and take Tylenol and ibuprofen as needed, apply Voltaren gel and lidocaine patches. Discussed these treatment options with patient. They verbalized understanding and are agreeable to be discharged home. Patient's symptoms improved over duration of stay with above-stated therapies. Findings and discharge diagnosis discussed with patient/family followed by verbalization of understanding Return precautions discussed with patient/family whom verbalize understanding of diagnosis and plan <Yulia Dong MD - Last Filed: 10/10/23 20:18> Lab Data Labs: Lab Results 10/10/23 10/10/23 Range/Units 16:10 19:38 WBC 9.9 (4.5-11.0) X10^3/uL RBC 4.33 (4.0-5.2) X10^6/uL Hgb 14.1 (12.0-16.0) g/dL Hct 40.2 (36-46) % MCV 92.8 (80-100) fL MCH 32.5 (26-34) PG MCHC 35.0 (30-36) % RDW 12.5 (11.6-14.8) % Plt Count 327 (150-400) X10^3/uL Neut % (Auto) 79.7 H (50-75) % Lymph % (Auto) 10.1 L (25-40) % [place] % (Auto) 8.3 (3-14) % Eos % (Auto) 1.2 L (2-4) % Baso % (Auto) 0.7 (0-2) % Neut # (Auto) 7900 H (0887-3316) /uL Lymph # (Auto) 1000 L (6318-8613) /uL [place] # (Auto) 800 (0-900) /uL Eos # (Auto) 100 (0-450) /uL Baso # (Auto) 100 (0-100) /uL Sodium 137 (137-145) mmol/L Potassium 3.8 (3.4-5.1) mmol/L Chloride 101 (98-107) mmol/L Carbon Dioxide 29 (22-32) mmol/L BUN 16 (7-17) mg/dL Creatinine 0.58 (0.52-1.04) mg/dL Estimated GFR > 60 (>60) mL/min BUN/Creatinine Ratio 27.6 H (6-22) Glucose 114 H (80-110) mg/dL Calcium 9.3 (8.4-10.2) mg/dL Total Bilirubin 0.7 (0.2-1.3) mg/dL AST 33 (14-36) IU/L ALT 24 (<35) IU/L Alkaline Phosphatase 93 (38-126) U/L Total Creatine Kinase 79 (30-135) U/L Troponin I < 0.012 (0.01-0.034) ng/mL Total Protein 8.1 (6.3-8.2) g/dL Albumin 4.8 (3.5-5.0) g/dL Globulin 3.3 (1.7-4.1) g/dL Albumin/Globulin Ratio 1.5 (1.0-2.8) Urine Color Yellow Urine Appearance Clear Urine pH 7.0 (4.5-8.0) Ur Specific [place] 1.010 (1.000-1.035) Urine Protein Negative (Negative) Urine Glucose (UA) Negative (Negative) g/dL Urine Ketones Negative (NEGATIVE) Urine Occult Blood 2+ H (Negative) Urine Nitrate Negative (Negative) Urine Bilirubin Negative (NEGATIVE) Urine Urobilinogen 0.2 (0.2) E.U./dL Ur Leukocyte Esterase Negative (NEGATIVE) Urine RBC 5-10/hpf H (0-5/HPF) Urine WBC 1-5/hpf (0-5/HPF) Ur Squamous Epith Cells 0-1 /hpf (0-5/HPF) Urine Bacteria Many (>30) H (None) Ur Culture Indicated? Specimen cultured Vol Urine Centrifuged 10ml (spun) Urine Dip Bedside Urine Glucose Negative Bedside Urine Bilirubin - Negative Bedside Urine Ketone - Negative Urine Specific [place] 1.01 Bedside Urine Occult Blood ++ Bedside Urine pH 6.5 Bedside Urine Protein - Negative Bedside Urine Urobilinogen - Negative Bedside Urine Nitrite - Negative Bedside Urine Leukocytes - Negative Esterase Discharge Plan Departure Patient Disposition: Home Clinical Impression: Acute pain of right hip, Dizziness, nonspecific Activity Restrictions/Additional Instructions: *You have been diagnosed with right hip pain and dizziness. Thankfully X-rays did not show any abnormality, fracture or dislocation of your right hip. Because of your episode of wooziness early this morning, we evaluated labs to check your heart as well as check for infection. All findings were normal. Your urine did show some blood present, so I recommend you continue follow up with your primary care provider to see if this continues. We will send her urine off for culture and microscopy for further evaluation and notify you if any further treatment as needed. I recommend continued follow up with your primary care provider especially if the wheeziness returns. Please return to the emergency department if you should develop dizziness, chest pain, palpitations, increased dizziness or severe pain or other concerning signs or symptoms. It was a pleasure seeing you again today. *Please follow up with your primary care provider in 2-3 days, call for an appointment. Let them know you were seen in the Emergency Department and that we ask that you be seen in follow up. We will electronically transmit a record of today's note if your PCP is in our system *Return to Emergency Department if you should have any new, worsening or concerning symptoms, such as fever greater than 101 F, shaking chills, worsening pain, persistent vomiting or other bothersome symptoms. Prescriptions: No Action Prolia 60 mg/mL syringe 60 mg SUBCUT [id number] Qty: 1 0RF fluoxetine 10 mg capsule See Rx Instructions .ROUTE .COMPLEX Qty: 90 0RF Dose Instruction: TAKE 1 CAPSULE BY MOUTH EVERY DAY IN THE MORNING Rx Instructions: TAKE 1 CAPSULE BY MOUTH EVERY DAY IN THE MORNING atorvastatin 20 mg tablet See Rx Instructions .ROUTE .COMPLEX Qty: 90 0RF Dose Instruction: TAKE 1 TABLET BY MOUTH DAILY Rx Instructions: TAKE 1 TABLET BY MOUTH DAILY Referrals: Miscellaneous,Doctor, [Primary Care Provider] - Stand Alone Forms: Patient Portal/API ED Sign-out <Yulia Dong MD - Last Filed: 10/10/23 20:18> Cosign ED Attending Coshosseinature Attestation: I did not see this patient. I was available all times for consultation.
--- NOTE | 2023-10-10 18:00 | DI.RAD.S_ITS ---
PROCEDURE: XR CHEST 2V INDICATIONS: wooziness this morning TECHNIQUE: 2 views of the chest were acquired. COMPARISON: [facility], [facility], XR CHEST 2V, 07/31/2018, 9:47. FINDINGS: Surgical changes and devices: None. Lungs and pleura: Lungs are clear. No pleural effusions or pneumothorax. Mediastinum: Mediastinal contours are normal. Heart size is normal. Bones and chest wall: No suspicious bony abnormalities. Soft tissues appear unremarkable. IMPRESSION: No acute cardiopulmonary abnormality is seen. Dictated by: Adama Tirado M.D. on 10/10/2023 at 19:57 Approved by: Adama Tirado M.D. on 10/10/2023 at 19:57
[2023-10-10 18:18] LABS: Add Manual Diff / Slide Review NO; Basophils Absolute Auto 100 /uL (0-100); Basophils Percent Auto 0.7 % (0-2); Eosinophils Absolute Auto 100 /uL (0-450); Eosinophils Percent Auto 1.2 % (2-4); Hematocrit 40.2 % (36-46); Hemoglobin 14.1 g/dL (12.0-16.0); Lymphocytes Absolute Auto 1000 /uL (1100-4500); Lymphocytes Percent Auto 10.1 % (25-40); Mean Corpuscular Hemoglobin 32.5 PG (26-34); Mean Corpuscular Volume 92.8 fL (80-100); Monocytes Absolute Auto 800 /uL (0-900); Monocytes Percent Auto 8.3 % (3-14); Neutrophils Absolute Auto 7900 /uL (1500-7000); Neutrophils Percent Auto 79.7 % (50-75); Platelet Count 327 X10^3/uL (150-400); Red Blood Cell Count 4.33 X10^6/uL (4.0-5.2); Red Cell Distribution Width 12.5 % (11.6-14.8); White Blood Cell Count 9.9 X10^3/uL (4.5-11.0)
[2023-10-10 18:30] LABS: Alanine Aminotransferase 24 IU/L (<35); Albumin 4.8 g/dL (3.5-5.0); Albumin Globulin Ratio 1.5 (1.0-2.8); Alkaline Phosphatase 93 U/L (38-126); Aspartate Aminotransferase 33 IU/L (14-36); BUN Creatinine Ratio 27.6 (6-22); Bilirubin Total 0.7 mg/dL (0.2-1.3); Blood Urea Nitrogen 16 mg/dL (7-17); Calcium 9.3 mg/dL (8.4-10.2); Carbon Dioxide 29 mmol/L (22-32); Chloride 101 mmol/L (98-107); Creatine Kinase 79 U/L (30-135); Estimated Glomerular Filt Rate > 60 mL/min (>60); Globulin 3.3 g/dL (1.7-4.1); Glucose 114 mg/dL (80-110); HEMOLYSIS < 15 (0-50); Potassium 3.8 mmol/L (3.4-5.1); Sodium 137 mmol/L (137-145); Total Protein 8.1 g/dL (6.3-8.2)
[2023-10-10 18:41] LABS: Troponin I < 0.012 ng/mL (0.01-0.034)
[2023-10-10 18:42] VITALS: PULSE 66
[2023-10-10 19:49] LABS: Appearance Urine UA CLEAR; Bilirubin Urine UA NEGATIVE (NEGATIVE); Color Urine UA YELLOW; Glucose Urine UA NEGATIVE (Negative); Ketones Urine UA NEGATIVE (NEGATIVE); Leukocyte Esterase Urine UA NEGATIVE (NEGATIVE); Nitrite Urine UA NEGATIVE (Negative); Occult Blood Urine UA 2+ (Negative); Protein Urine UA NEGATIVE (Negative); Urobilinogen Urine UA 0.2 E.U./dL (0.2)
[2023-10-10 20:00] LABS: Urine Volume 10mL (spun)
[2023-10-10 20:01] LABS: Bacteria Urine Many (>30); Culture Indicated Urine Specimen Cultured; RBC Urine 5-10/HPF (0-5/HPF); Squamous Epithelial Cell Urine 0-1 /HPF (0-5/HPF); WBC Urine 1-5/HPF (0-5/HPF)
[2023-10-10 20:05] VITALS: BP 163/80; PULSE 78; RESP 16; O2SAT 99
[2023-10-10 20:06] VITALS: TEMP 36.4
== END 2023-10-10 20:15 | disposition home or self-care (01) ==
PROVIDERS: Emergency Provider Physician Assistant
DX: M25.551 Pain in right hip (principal); R42 Dizziness and giddiness; R07.9 Chest pain, unspecified
CPT/HCPCS: 36415; 71046; 73502; 80053; 81001; 81003; 82550; 84484; 85025; 87077; 87086; 87186; 93005; 99283; 99284